=== PATIENT | male | born 1950 | race Caucasian/White ===

== ENCOUNTER → 2019-02-02 09:03 | Outpatient (CLI) | payer OTHER, SELFPAY ==
--- NOTE | 2019-02-02 | DI.US.S_ITS ---
PROCEDURE: US CAROTID DOPPLER BI INDICATIONS: VISUAL CHANGES TECHNIQUE: Color and pulse Doppler interrogation was performed of both carotid systems, with image documentation and velocity measurements. COMPARISON: None. FINDINGS: Stenosis calculations are based on SRU (Society of Radiologists in Ultrasound) criteria. Right side: Brachial blood pressure: 152/89 mm Hg. Common carotid artery peak systolic velocity: 101 cm/sec. Internal carotid artery peak systolic velocity: 126 cm/sec. Internal carotid artery end diastolic velocity: 25 cm/sec. External carotid artery peak systolic velocity: 111 cm/sec. ICA/CCA peak systolic ratio: 1.3 Quevedo scale imaging description: Mild atherosclerotic changes are seen. Percent internal carotid artery stenosis: 50-69% by velocity criteria. Vertebral artery: Flow direction is antegrade. Left side: Brachial blood pressure: 141/84 mm Hg. Common carotid artery peak systolic velocity: 116 cm/sec. Internal carotid artery peak systolic velocity: 80 cm/sec. Internal carotid artery end diastolic velocity: 17 cm/sec. External carotid artery peak systolic velocity: 116 cm/sec. ICA/CCA peak systolic ratio: 0.7 Quevedo scale imaging description: Mild atherosclerotic changes can be seen. Percent internal carotid artery stenosis: Less than 50% by velocity criteria. Vertebral artery: Flow direction is antegrade. IMPRESSION: By velocity criteria, there is a moderate stenosis (between 50 and 69% stenosis) within the right proximal internal carotid artery. The true degree of stenosis is felt most likely to be at the lower end of this range. Dictated by: Jeffrey Edge M.D. on 02/02/2019 at 12:14 Approved by: Jeffrey Edge M.D. on 02/02/2019 at 12:15
--- NOTE | 2019-02-02 | DI.US.S_ITS ---
PROCEDURE: US ABDOMEN LIMITED INDICATIONS: LEFT INGUINAL PAIN TECHNIQUE: Real-time focused scanning was performed of the inguinal region, with image documentation. COMPARISON: [facility], US, RENAL OR RETROPERITONEAL LIMIT, 05/26/2017, 9:32. FINDINGS: No left inguinal hernia or other left groin abnormality seen. IMPRESSION: No sonographic abnormality involving the left groin. Dictated by: Samuel BROWN Interpreted: Jayme Chacon MD on 02/02/2019 at 14:51 Approved by: Jayme Chacon M.D. on 02/02/2019 at 16:12
== END ==
PROVIDERS: PCP Student in an Organized Health Care Education/Training Program; Visit Provider Student in an Organized Health Care Education/Training Program
DX: I65.21 Occlusion and stenosis of right carotid artery (principal); H53.9 Unspecified visual disturbance; R10.32 Left lower quadrant pain
CPT/HCPCS: 76705; 93880

== ENCOUNTER → 2019-02-16 13:53 | Outpatient (CLI) | payer OTHER, SELFPAY ==
--- NOTE | 2019-02-16 | DI.CT.S_ITS ---
PROCEDURE: CT ABDOMEN PELVIS WO CON INDICATIONS: left groin pain TECHNIQUE: Noncontrast 5 mm thick sections acquired from the diaphragms to the symphysis. 5 mm thick coronal and sagittal reformats were then performed. For radiation dose reduction, the following was used: automated exposure control, adjustment of mA and/or kV according to patient size. COMPARISON: [facility], , ABDOMEN LIMITED, 02/02/2019, 9:28. FINDINGS: Image quality: Excellent. Lung bases: Lung bases are clear. Heart size is normal. Prominent pericardial fat pad. Urinary system: Both kidneys are normal in size. No kidney stones. No hydronephrosis or perinephric fat stranding. Both ureters appear non-dilated throughout their expected courses. Bladder wall thickness is normal; no calcified bladder stones. Other solid organs: Liver is normal in size. Gallbladder unremarkable. Pancreas is normal in contours. Spleen is normal in size. No adrenal nodules. Peritoneum and bowel: Unenhanced bowel loops demonstrate normal wall thickness and caliber. No free fluid or air. Colonic diverticulosis. Nodes and vessels: No retroperitoneal or mesenteric adenopathy by size criteria. Aorta and inferior vena cava are normal in caliber. Abdominal wall: Fat and fluid containing midline ventral hernia measuring 3 cm image 55 series 2. Small fat containing left inguinal hernia. This measures approximately 2.9 cm Trace right fat-containing inguinal hernia Bones: No suspicious bony lesions. No vertebral body compression fractures. IMPRESSION: 2.9 cm fat containing left inguinal hernia. Trace right fat-containing inguinal hernia. No evidence of urolithiasis. No evidence of urinary obstruction. Fat/fluid containing midline ventral hernia (3 cm). Additional chronic and incidental findings as above. No Dictated by: Deo Rodriguez M.D. on 02/16/2019 at 16:09 Approved by: Deo Rodriguez M.D. on 02/16/2019 at 16:16
== END ==
PROVIDERS: PCP Student in an Organized Health Care Education/Training Program; Visit Provider Student in an Organized Health Care Education/Training Program
DX: K40.90 Unilateral inguinal hernia, without obstruction or gangrene, not specified as recurrent (principal)
CPT/HCPCS: 74176

== ENCOUNTER → 2019-09-09 16:14 | Outpatient (ROUT) | payer OTHER, SELFPAY ==
[2019-09-09 16:53] LABS: Influenza A - CEPHEID Flu A NEGATIVE (NEGATIVE); Influenza B - CEPHEID Flu B NEGATIVE (NEGATIVE)
== END ==
PROVIDERS: PCP Student in an Organized Health Care Education/Training Program; Visit Provider Student in an Organized Health Care Education/Training Program
DX: R05 Cough (principal)
CPT/HCPCS: 87502

== ENCOUNTER → 2019-09-23 14:58 | Outpatient (CLI) | payer OTHER, SELFPAY ==
--- NOTE | 2019-09-23 | DI.US.S_ITS ---
PROCEDURE: US CAROTID DOPPLER BI INDICATIONS: CAROTID ARTERY STENOSIS BILATERAL TECHNIQUE: Color and pulse Doppler interrogation was performed of both carotid systems, with image documentation and velocity measurements. COMPARISON: [facility], US, US CAROTID DOPPLER BI, 02/02/2019, 9:11. FINDINGS: Stenosis calculations are based on SRU (Society of Radiologists in Ultrasound) criteria. Right side: Brachial blood pressure: 121/72 mm Hg. Common carotid artery peak systolic velocity: 88 cm/sec. Internal carotid artery peak systolic velocity: 148 cm/sec. Internal carotid artery end diastolic velocity: 88 cm/sec. External carotid artery peak systolic velocity: 111 cm/sec. ICA/CCA peak systolic ratio: 1.7. Quevedo scale imaging description: Calcified plaque Percent internal carotid artery stenosis: 50-69% stenosis. Vertebral artery: Flow direction is antegrade. Left side: Brachial blood pressure: 127/81 mm Hg. Common carotid artery peak systolic velocity: 98 cm/sec. Internal carotid artery peak systolic velocity: 87 cm/sec. Internal carotid artery end diastolic velocity: 26 cm/sec. External carotid artery peak systolic velocity: 144 cm/sec. ICA/CCA peak systolic ratio: 0.9. Quevedo scale imaging description: Calcified plaque Percent internal carotid artery stenosis: Less than 50%. Vertebral artery: Flow direction is antegrade. IMPRESSION: 1. 50-69% stenosis of the origin of the right internal carotid artery not significantly changed compared 02/02/2019. 2. Less than 50% stenosis of the origin of the left internal carotid artery unchanged compared to 02/02/2019. Dictated by: Fabiola Verma MD, PhD on 09/23/2019 at 16:39 Approved by: Fabiola Verma MD, PhD on 09/23/2019 at 16:46
--- NOTE | 2019-09-23 | DI.ECHO.S_ITS ---
[place] [facility]---------+ [facility] +---------+ : : [address] [place] : : : : [id number] : : : : Phone: [phone]---------+ Echocardiogram Report + + :Name: JENS GUTIERREZ Study Date: 09/23/2019 Height: 67 in : :[facility] Weight: 286 lb : : Gender: Male BSA: 2.4 m2 : :: 1950 Age: 69 yrs BP: 127/81 mmHg: :Reason For Study: Pedal Edema, Hypertension : :Ordering Physician: Elaine : :Hospitalist Performed By: Niya Ham : :Referring: SHRUTI RAMIREZ : + + Interpretation Summary 1) Normal left ventricular size, thickness, wall motion, and systolic function (EF 60-65%). 2) Grossly, normal right ventricular size and function. 3) No significant valvular abnormalities. 4) No prior Echo available for comparison. Procedure: A two-dimensional transthoracic echocardiogram with color flow and Doppler was performed. The study quality was technically difficult. There is no prior echocardiogram noted for this patient. A contrast injection of Definity was performed to improve assessment of LV function. Contrast was injected into an intravenous site in the right arm. Definity contrast used after patient education and consent. Patient denied any symptoms following the use of Definity. The patient was in normal sinus rhythm during the exam. Left Ventricle: The left ventricle is normal in size and wall thickness. The ejection fraction is estimated to be 60-65%. Diastolic parameters suggest probable normal left ventricular diastolic function and normal filling pressures. Right Ventricle: The right ventricle is not well visualized. The right ventricle grossly appears normal in size with probable normal systolic function. Atria: Both atria are normal in size. There is no Doppler evidence for an interatrial shunt. Mitral Valve: The mitral valve is normal in structure and function. There is no mitral regurgitation noted. Aortic Valve: The aortic valve is trileaflet. The aortic valve opens well. There is no aortic valve stenosis. No aortic regurgitation is present. Tricuspid Valve: The tricuspid valve is normal in structure and function. There is mild tricuspid regurgitation. The right ventricular systolic pressure is estimated to be at least 18 mmHg based on an estimated right atrial pressure of 3 mm Hg. Pulmonic Valve: The pulmonic valve is not well visualized. There is no pulmonic valvular regurgitation. Great Vessels: The aortic root is normal size. The ascending aorta could not be visualized. The IVC is of normal diameter and collapses greater than 50% with a sniff. This suggests a low right atrial pressure of 3 mm Hg. Pericardium/ Pleura There is no pericardial effusion. There is no pleural effusion. MMode/2D Measurements & Calculations LVIDd: 5.0 cm LVOT diam: 2.1 cm LVIDs: 3.4 cm Ao root diam: 3.3 cm FS: 33.1 % asc Aorta Diam: 3.8 cm EPSS: 0.83 cm IVSd: 1.0 cm LVPWd: 1.0 cm LV lorenz. diameter/BSA (cm/m^2): 2.1 LV sys. diameter/BSA (cm/m^2): 1.4 LA A2 area: 19.8 cm2 RA long axis: 5.8 cm LA A4 area: 20.8 cm2 RA area: 17.3 cm2 LA length (vol): 5.9 cm RA vol: 44.1 ml LA vol: 59.2 ml RA : 18.8 ml/m2 LA vol index: 25.2 ml/m2 IVC diam: 2.0 cm TAPSE: 2.6 cm Doppler Measurements & Calculations Ao V2 max: 146.3 cm/sec LVOT Max Jeffy: 112.7 cm/sec Ao V2 mean: 103.1 cm/sec LV V1 max P.1 mmHg Ao max P.6 mmHg LV V1 VTI: 22.0 cm Ao mean P.8 mmHg ELENO(I,D): 2.8 cm2 Ao V2 VTI: 28.9 cm ELENO(V,D): 2.8 cm2 sev ratio: 0.76 ELENO indexed to BSA (cm^2/m^2): 1.2 MV E max jeffy: 58.5 cm/sec TR max jeffy: 195.9 cm/sec MV A max jeffy: 63.6 cm/sec TR max P.3 mmHg MV E/A: 0.92 PA V2 max: 90.9 cm/sec Med Peak E' Jeffy: 8.3 cm/sec PA V2 mean: 62.8 cm/sec E/E' med: 7.0 PA mean P.8 mmHg Lat Peak E' Jeffy: 8.5 cm/sec PA pr(Accel): 55.4 mmHg E/E' lat: 6.9 E/e' average: 7.0 MV dec time: 0.22 sec MV P1/2t: 65.7 msec MV P1/2t max jeffy: 59.2 cm/sec SV(LVOT): 79.7 ml MVA(P1/2t): 3.3 cm2 Reading Physician:05:43 PM
== END ==
PROVIDERS: PCP Student in an Organized Health Care Education/Training Program; Referring Provider Student in an Organized Health Care Education/Training Program; Visit Provider Student in an Organized Health Care Education/Training Program
DX: I65.23 Occlusion and stenosis of bilateral carotid arteries (principal); I07.1 Rheumatic tricuspid insufficiency; R60.0 Localized edema; I10 Essential (primary) hypertension
CPT/HCPCS: 93306; 93880

== ENCOUNTER → 2020-02-08 11:23 | Outpatient (ROUT) | payer OTHER, SELFPAY ==
[2020-02-08 12:01] LABS: Troponin I 0.021 ng/mL (0.01-0.034)
== END ==
PROVIDERS: PCP Student in an Organized Health Care Education/Training Program; Visit Provider Student in an Organized Health Care Education/Training Program
DX: R00.1 Bradycardia, unspecified (principal)
CPT/HCPCS: 84484

== ENCOUNTER → 2020-02-08 11:35 | Outpatient (CLI) | payer OTHER, SELFPAY ==
--- NOTE | 2020-02-08 | DI.RAD.S_ITS ---
PROCEDURE: XR CHEST 2V INDICATIONS: Bradycardia, unspecified TECHNIQUE: 2 views of the chest were acquired. COMPARISON: None. FINDINGS: Surgical changes and devices: None. Lungs and pleura: Diffuse, bilateral interstitial opacities are present. No focal lung consolidation.. No pleural effusions or pneumothorax. Mediastinum: Mediastinal contours are normal. Heart size is enlarged. Bones and chest wall: No suspicious bony abnormalities. Soft tissues appear unremarkable. IMPRESSION: Mild cardiomegaly and diffuse interstitial opacities of indeterminate acuity. Mild pulmonary edema or atypical infection cannot be excluded and clinical correlation and follow-up is recommended. Dictated by: Samuel Castañeda [facility] Interpreted: Meron Bonds MD on 02/08/2020 at 16:45 Approved by: Meron Bonds M.D. on 02/08/2020 at 18:04
== END ==
PROVIDERS: PCP Student in an Organized Health Care Education/Training Program; Referring Provider Student in an Organized Health Care Education/Training Program; Visit Provider Student in an Organized Health Care Education/Training Program
DX: R00.1 Bradycardia, unspecified (principal); R06.02 Shortness of breath; I51.7 Cardiomegaly
CPT/HCPCS: 71046; 84484

== ENCOUNTER → 2021-05-31 17:22 | Outpatient (CLI) | payer OTHER, SELFPAY ==
[2021-05-31 17:58] LABS: Add Manual Diff / Slide Review NO; Basophils Absolute Auto 0 /uL (0-100); Basophils Percent Auto 0.7 % (0-2); Eosinophils Absolute Auto 300 /uL (0-450); Eosinophils Percent Auto 5.8 % (2-4); Hematocrit 41.8 % (41-53); Hemoglobin 14.2 g/dL (13.5-17.5); Lymphocytes Absolute Auto 1300 /uL (1100-4500); Lymphocytes Percent Auto 25.4 % (25-40); Mean Corpuscular HGB Conc 33.9 % (30-36); Mean Corpuscular Hemoglobin 31.9 PG (26-34); Mean Corpuscular Volume 93.9 fL (80-100); Monocytes Absolute Auto 700 /uL (0-900); Neutrophils Absolute Auto 2900 /uL (1500-7000); Neutrophils Percent Auto 55.1 % (50-75); Platelet Count 265 X10^3/uL (150-400); Red Blood Cell Count 4.45 X10^6/uL (4.5-5.9); White Blood Cell Count 5.2 X10^3/uL (4.5-11.0)
[2021-05-31 18:33] LABS: Appearance Urine UA CLEAR; Bilirubin Urine UA NEGATIVE (NEGATIVE); Color Urine UA YELLOW; Glucose Urine UA NEGATIVE (Negative); Ketones Urine UA NEGATIVE (NEGATIVE); Leukocyte Esterase Urine UA TRACE (NEGATIVE); Nitrite Urine UA POSITIVE (Negative); Occult Blood Urine UA 1+ (Negative); Protein Urine UA NEGATIVE (Negative); Urobilinogen Urine UA 0.2 E.U./dL (0.2)
[2021-05-31 18:43] LABS: Alanine Aminotransferase 36 IU/L (<50); Albumin 4.3 g/dL (3.5-5.0); Albumin Globulin Ratio 1.2 (1.0-2.8); Alkaline Phosphatase 103 U/L (38-126); Aspartate Aminotransferase 36 IU/L (17-59); BUN Creatinine Ratio 19.8 (6-22); Bilirubin Total 0.5 mg/dL (0.2-1.3); Blood Urea Nitrogen 20 mg/dL (9-20); Calcium 9.8 mg/dL (8.4-10.2); Carbon Dioxide 30 mmol/L (22-32); Chloride 102 mmol/L (98-107); Estimated Glomerular Filt Rate > 60.0 mL/min (>60); Globulin 3.6 g/dL (1.7-4.1); Glucose 105 mg/dL (80-110); HEMOLYSIS < 15 (0-50); Potassium 4.5 mmol/L (3.4-5.1); Sodium 139 mmol/L (137-145); Total Protein 7.9 g/dL (6.3-8.2)
[2021-05-31 19:08] LABS: Bacteria Urine None Seen; Culture Indicated Urine Specimen Cultured; RBC Urine None Seen (0-5/HPF); Squamous Epithelial Cell Urine 0-1 /HPF (0-5/HPF); WBC Urine 1-5/HPF (0-5/HPF)
[2021-05-31 19:09] LABS: Thyroid Stimulating Hormone 1.96 uIU/mL (0.47-4.68)
== END ==
PROVIDERS: PCP Student in an Organized Health Care Education/Training Program; Referring Provider Student in an Organized Health Care Education/Training Program; Visit Provider Student in an Organized Health Care Education/Training Program
DX: R61 Generalized hyperhidrosis (principal)
CPT/HCPCS: 36415; 80053; 81001; 84443; 85025; 87086

== ENCOUNTER → 2021-06-11 12:20 | Outpatient (CLI) | payer OTHER, SELFPAY ==
--- NOTE | 2021-06-11 | DI.ECHO.S_ITS ---
[place] +---------+ Hospital +---------+ : : [address] : [address] [place] : : : : [id number] : : : : Phone: [phone] : : [phone] +---------+ Echocardiogram Report + + :Name: JENS GUTIERREZ Study Date: 06/11/2021 Height: 67.5 in: :[facility] ReadingLocation: Weight: 280 lb : : Gender: Male BSA: 2.4 m2 : :: 1950 Age: 70 yrs : :Reason For Study: Edema : :Ordering Physician: MARTAerformed By: Travis Fernandez : :Referring: STEPHANIE DILLARD : + + Interpretation Summary The study quality was technically difficult. The ejection fraction is estimated to be 55-60%. There are no obvious focal wall motion abnormalities noted but poor endocardial definition reduces the sensitivity for the detection of such. There is no significant valvular heart disease. Procedure: A two-dimensional transthoracic echocardiogram with color flow and Doppler was performed. The study quality was technically difficult. The apical views were difficult to obtain and are suboptimal in quality. Comparison is made with the echocardiogram of 09/23/2019. A contrast injection of Definity was performed to improve assessment of LV function. The patient was in normal sinus rhythm during the exam. Left Ventricle: The left ventricle is normal in size and wall thickness. The ejection fraction is estimated to be 55-60%. There are no obvious focal wall motion abnormalities noted but poor endocardial definition reduces the sensitivity for the detection of such. Right Ventricle: The right ventricle is not well visualized. Atria: The left atrium is not well visualized. The left atrium is mildly dilated. Right atrium not well visualized. The right atrium is moderately dilated. There is no Doppler evidence for an interatrial shunt. The atrial septum is aneurysmal. Mitral Valve: The mitral valve is normal. There is trace mitral regurgitation. Aortic Valve: The aortic valve is trileaflet. The aortic valve opens well. No aortic regurgitation is present. Tricuspid Valve: The tricuspid valve is normal. There is trace tricuspid regurgitation. Pulmonary artery pressures cannot be estimated because of the lack of a measurable TR jet velocity. Pulmonic Valve: The pulmonic valve is not well seen, but is grossly normal. There is a trace or physiologic amount of pulmonic regurgitation. Great Vessels: The aortic root is normal size. The ascending aorta is mildly enlarged. The aortic arch could not be visualized. The IVC is of normal diameter and collapses greater than 50% with a sniff. This suggests a low right atrial pressure of 3 mm Hg. Pericardium/ Pleura There is no pericardial effusion. There is an anterior echo-free space consistent with a fat pad. There is no pleural effusion. MMode/2D Measurements & Calculations LVIDd: 5.2 cm LVOT diam: 1.9 cm LVIDs: 4.1 cm Ao root diam: 2.8 cm FS: 21.2 % asc Aorta Diam: 3.9 cm IVSd: 1.0 cm LVPWd: 1.0 cm LV lorenz. diameter/BSA (cm/m^2): 2.2 LV sys. diameter/BSA (cm/m^2): 1.7 LA A2 area: 29.3 cm2 RA long axis: 5.5 cm LA A4 area: 25.4 cm2 RA area: 25.3 cm2 LA length (vol): 6.4 cm RA vol: 97.9 ml LA vol: 98.6 ml RA : 41.7 ml/m2 LA vol index: 41.9 ml/m2 LVLs ap4: 7.6 cm LVLd ap2: 9.1 cm LVLs ap2: 7.7 cm Doppler Measurements & Calculations Ao V2 max: 169.7 cm/sec LVOT Max Jeffy: 118.7 cm/sec Ao V2 mean: 119.6 cm/sec LV V1 max P.6 mmHg Ao max P.5 mmHg LV V1 VTI: 24.8 cm Ao mean P.2 mmHg ELENO(I,D): 1.9 cm2 Ao V2 VTI: 37.5 cm ELENO(V,D): 2.0 cm2 sev ratio: 0.66 ELENO indexed to BSA (cm^2/m^2): 0.80 MV E max jeffy: 62.1 cm/sec PA V2 max: 79.6 cm/sec MV A max jeffy: 50.1 cm/sec PA V2 mean: 55.5 cm/sec MV E/A: 1.2 PA mean P.0 mmHg Med Peak E' Jeffy: 9.3 cm/sec PA pr(Accel): 21.9 mmHg E/E' med: 6.7 Lat Peak E' Jeffy: 8.6 cm/sec E/E' lat: 7.2 E/e' average: 7.0 MV dec time: 0.24 sec [facility] 70.4 ml Reading Physician:04:57 PM
== END ==
PROVIDERS: PCP Student in an Organized Health Care Education/Training Program; Referring Provider Internal Medicine Cardiovascular Disease; Visit Provider Internal Medicine Cardiovascular Disease
DX: I77.89 Other specified disorders of arteries and arterioles (principal); R60.9 Edema, unspecified
CPT/HCPCS: 93306; Q9957

== ENCOUNTER 2022-03-31 19:01 | Emergency (ER) | payer OTHER, SELFPAY ==
[2022-03-31] VITALS (7 sets, daily range): BP systolic 119–146; BP diastolic 61–90; PULSE 54–79; RESP 20–26; TEMP 36.3; O2SAT 94–98; BMI 43.5
[2022-03-31] MEDS: MORPHINE 4 MG/ML INJ IV ×2 (19:21→19:34)
--- NOTE | 2022-03-31 19:26 | ED_ITS ---
HPI - Extremity Injury (Lower) General Chief Complaint: Extremity Injury, Lower Stated Complaint: log/3 feet long fell on right leg at home Time Seen by Provider: 03/31/22 19:16 Source: patient Mode of arrival: Wheelchair Limitations: no limitations History of Present Illness HPI Narrative: 71-year-old male who is here for evaluation of a right foot injury. He states that he was wearing a pair of boots. He was working with some wood. Pulling somewhat of a back of a vehicle when a very large log which he estimates to be approximately 400 lb fell down and crushed his right foot. No other injuries from the event. No other pain except for his right foot. Has been unable to walk because of the discomfort. Related Data Home Medications Medication Instructions Recorded Confirmed atorvastatin 10 mg tablet 10 mg PO DAILY 02/24/19 02/24/19 cetirizine 10 mg tablet (Aller-Jennifer) 5 mg PO DAILY PRN 02/24/19 02/24/19 cyclobenzaprine 10 mg tablet 10 mg PO BEDTIME 02/24/19 02/24/19 dexamethasone 4 mg tablet 4 mg PO DAILY 02/24/19 02/24/19 doxazosin 4 mg tablet 4 mg PO DAILY 02/24/19 02/24/19 hydrochlorothiazide 12.5 mg capsule 12.5 mg PO DAILY 02/24/19 02/24/19 hydrocodone 5 mg-acetaminophen 325 1 tab PO QID PRN 02/24/19 02/24/19 mg tablet losartan 50 mg tablet 50 mg PO DAILY 02/24/19 02/24/19 paroxetine HCl 40 mg tablet 40 mg PO DAILY 02/24/19 02/24/19 trospium 20 mg tablet 20 mg PO BID 02/24/19 02/24/19 Previous Rx's Medication Instructions Recorded naproxen 500 mg tablet (Naprosyn) 500 mg PO BID groin pain #40 tabs 02/24/19 hydrocodone 5 mg-acetaminophen 325 1 tab PO Q4-6H PRN pain #20 tabs 03/31/22 mg tablet Allergies Allergy/AdvReac Type Severity Reaction Status Date / Time Penicillins [PENICILLINS] Allergy Unknown POSSIBLE Unverified 02/24/19 09:09 OVERDOSE GIVEN PER PT Review of Systems Constitutional Constitutional: Reports system reviewed and no additional complaints, except as documented Musculoskeletal Musculoskeletal: Reports system reviewed and no additional complaints, except as documented Integumentary/Breasts Skin/Breast: Reports system reviewed and no additional complaints, except as documented Neurologic Neurologic: Reports system reviewed and no additional complaints, except as documented Patient History Medical History Hypertension Left groin pain Surgical History History of ankle surgery Hx of total knee arthroplasty Family History Father Hypertension Cancer Diabetes mellitus Social History marital status: household members: spouse Smoking Status: Never smoker alcohol intake: current substance use type: does not use Smoking Status: Never smoker Substance Use Type: does not use Exam Initial Vital Signs Initial Vital Signs: Vital Signs Temperature 97.3 F L 03/31/22 19:18 Pulse Rate 54 L 03/31/22 19:18 Respiratory Rate 22 03/31/22 19:18 Blood Pressure 146/90 H 03/31/22 19:18 Pulse Oximetry 96 03/31/22 19:18 Oxygen Delivery Method 03/31/22 19:18 Const General: No acute distress HENMT Head: normal to inspection and normocephalic Resp Effort & Inspection: tachypneic Cardio Rate: regular rate Skin Other: No breaks in the skin of the right foot. Neuro Sensory Exam: no sensory deficits noted Extrem Other: Patient has no knee tenderness nor distal right concepcion nor ankle tenderness. He is significant swelling over the right foot. Tenderness throughout palpation of the right foot. Capillary refill less than 2 seconds right foot. Psych Appearance: grossly normal Procedures Orthopedic Joint Reduction Joint #1: Time Out Performed: Yes Side: right Joint Reduction Location: other (Metatarsophalangeal of great toe) Analgesia: other (IV opioid) Technique used: direct manipulation Post-reduction neuro exam: no change Post-reduction vascular: no change Post Reduction X-Ray Obtained: Yes Post Reduction X-Ray Results: reduced Splint Applied: Yes Orthopedic Splinting/Casting Injury #1: Side: right Lower Extremity Injury Location: foot Lower Extremity Immobilizer: posterior splint Other Orthopedic Equipment: crutches Post splinting neuro exam: no change Post splinting vascular exam: no change Placed by: Provider Course Orders Ordered: ED Orders 03/31/22 19:27 XR foot RT min 3V Stat 03/31/22 20:37 XR foot RT 2V Stat 03/31/22 20:52 CT LE RT wo con Stat Discontinued Medications Hydrocodone Bitart/Acetaminophen (Hydrocodone/Acet 5/325 Prepack) 1 bottle MISC SEEINSTR ONE Stop: 03/31/22 20:56 Last Admin: 03/31/22 21:45 Dose: 1 bottle Documented By: JERZY Hydromorphone HCl (Hydromorphone 1 Mg Inj) 1 mg IV NOW ONE Stop: 03/31/22 20:20 Last Admin: 03/31/22 20:28 Dose: 1 mg Documented By: JERZY Morphine Sulfate (Morphine 4 Mg/Ml Inj) 4 mg IV NOW ONE Stop: 03/31/22 19:17 Last Admin: 03/31/22 19:21 Dose: 4 mg Documented By: JERZY Morphine Sulfate (Morphine 4 Mg/Ml Inj) 4 mg IV NOW ONE Stop: 03/31/22 19:28 Last Admin: 03/31/22 19:34 Dose: 4 mg Documented By: JERZY Vital Signs Vital signs: Vital Signs - 8 hr 03/31/22 19:18 03/31/22 19:26 03/31/22 20:31 Temperature 97.3 F L Pulse Rate 54 L 79 72 Respiratory Rate 22 21 20 Blood Pressure 146/90 H 143/77 H Pulse Oximetry 96 97 94 Oxygen Delivery Method Room Air Room Air 03/31/22 19:30 03/31/22 20:00 03/31/22 20:30 Temperature Pulse Rate 75 73 70 Respiratory Rate 26 H 26 H 21 Blood Pressure Pulse Oximetry 98 97 96 Oxygen Delivery Method 03/31/22 20:31 03/31/22 20:31 03/31/22 21:43 Temperature Pulse Rate 72 Respiratory Rate 21 Blood Pressure 143/77 H 119/61 Pulse Oximetry 95 Oxygen Delivery Method 03/31/22 21:43 Temperature Pulse Rate 72 Respiratory Rate Blood Pressure Pulse Oximetry 96 Oxygen Delivery Method MDM - Extremity Injury (Lower) Imaging Data Extremity x-ray #1: Radiologist's Impression: [address] [address] XRay Report Signed Patient: Devonte Obrien MR#: [id number] : 1950 Acct:[id number] Age/Sex: 71 / M Date of Service: 03/31/22 Loc: ED Accession Number: [id number] ?? Procedure: XR foot RT 2V Ordering Provider: Javi Amezquita D.O. PROCEDURE:? XR FOOT RT 2V ? INDICATIONS:? post reduction ? TECHNIQUE:? 2 views of the foot were acquired.? ? COMPARISON:? [facility], CR, XR FOOT RT MIN 3V, 03/31/2022, 19:38. ? FINDINGS:? ? Bones:? There is interval reduction of the previously dislocated 1st tarsometatarsal joint.? Comminuted fractures are redemonstrated involving the bases of the 1st through 5th metatarsals as well as the cuboid and likely the lateral cuneiform.? Mildly displaced fracture of the 2nd metatarsal neck is also redemonstrated. ? Soft tissues:? There is diffuse soft tissue swelling in the forefoot redemonstrated. ? ? IMPRESSION:? ? 1. Interval reduction of the 1st tarsometatarsal joint. ? 2. Multiple midfoot and forefoot fractures redemonstrated. ? ? Dictated by: Kirby Berg M.D. on 03/31/2022 at 21:49 ? ? Approved by: Kirby Berg M.D. on 03/31/2022 at 21:57 Extremity x-ray #2: Radiologist's Impression: [place] [address] XRay Report Signed Patient: Devonte Obrien MR#: [id number] : 1950 Acct:[id number] Age/Sex: 71 / M Date of Service: 03/31/22 Loc: ED Accession Number: [id number] ?? Procedure: XR foot RT min 3V Ordering Provider: Javi Amezquita D.O. PROCEDURE:? XR FOOT RT MIN 3V ? INDICATIONS:? crush injury to foot ? TECHNIQUE:? 3 views of the foot were acquired.? ? COMPARISON:? None. ? FINDINGS:? ? Bones:? There is lateral dislocation of the 1st tarsometatarsal joint with associated small fracture fragments.? There also mildly displaced fractures through the proximal shaft of the 2nd through 5th metatarsals with associated medial angulation.? A mildly displaced fracture of the neck of the 2nd metatarsal is also demonstrated with mild lateral angulation.? There is also a suspected comminuted fracture of the cuboid. ? Soft tissues:? There is extensive dorsal soft tissue swelling in the forefoot. ? ? IMPRESSION:? ? 1. Extensive fractures of the midfoot as described as well as lateral dislocation at the 1st tarsometatarsal joint.? Further evaluation may be obtained with CT if clinically indicated.? ? ? Dictated by: Kirby Berg M.D. on 03/31/2022 at 20:18 ? ? Approved by: Kirby Berg M.D. on 03/31/2022 at 20:20? CT LE: Radiologist's Impression: [address] [address] [address] Scan Report Signed Patient: Devonte Obrien MR#: [id number] : 1950 Acct:[id number] Age/Sex: 71 / M Date of Service: 03/31/22 Loc: ED Accession Number: [id number] ?? Procedure: CT LE RT wo con Ordering Provider: Javi Amezquita D.O. PROCEDURE:? CT LE RT WO CON ? INDICATIONS:? R foot crush injury ? TECHNIQUE:? Noncontrast 1-1.5 mm axial sections acquired from above the tibiotalar joint to the bottom of the calcaneus, with coronal and sagittal reformats.? ? COMPARISON:? [facility], CR, XR FOOT RT MIN 3V, 03/31/2022, 19:38.? [facility], CR, XR FOOT RT 2V, 03/31/2022, 20:29. ? FINDINGS:? Image quality:? Excellent.? ? Bones:? There are comminuted fractures throughout the right foot.? These include comminuted fractures of the calcaneus extending to the calcaneocuboid articula tion as well as through the anterior process.? A mildly displaced fracture of the inferior talus also present.? Comminuted fractures are demonstrated within the cuboid as well as small mildly displaced fractures of the lateral and middle cuneiforms.? There are comminuted fractures involving the bases of the 1st through 4th metatarsals.? There is fusion of the 5th tarsometatarsal joint.? A mildly displaced fracture of the 2nd metatarsal neck is also redemonstrated. ? Soft tissues:? There is extensive dorsal soft tissue swelling within the foot.? The flexor, extensor, peroneal, and Achilles tendons appear intact. ? IMPRESSION:? ? 1. Extensive fractures of throughout the foot as described including fractures of the calcaneus and talus in the hindfoot, fractures throughout the midfoot involving the cuboid, lateral and middle cuneiforms, and bases of the metatarsals, and fracture of the 2nd metatarsal neck in the forefoot. ? ? Dictated by: Kirby Berg M.D. on 03/31/2022 at 23:15 ? ? Approved by: Kirby Berg M.D. on 03/31/2022 at 23:22?? MDM Narrative Medical decision making narrative: Patient with extensive fractures and dislocation his right foot and tarsometatarsal area. He has brisk capillary refill. Dorsalis pedis pulses difficult to feel however his foot is warm and pink. Initial x-ray shows di slocation of the 1st MTP joint. This was reduced however the rest of his metatarsal joints improved alignment but not 100% reduced. He stated that after the 1st metatarsal was reduced his pain was significantly better. I did discuss the case with Dr. lee with orthopedic surgery who recommended a well-padded posterior splint which was placed. Patient tolerated this well. Nonweightbearing. Follow-up in the orthopedic office later this week. CT scan was ordered per her request for further evaluation of his foot injuries. Did consider compartment syndrome however despite the swelling that he has he did not have pain out of proportion. He has good perfusion to his toes. His foot is warm. Did inform the patient that if his pain worsened that he does need to return to the emergency department for further evaluation. He expressed understanding and agreement with plan. Discharge Plan Departure Patient Disposition: Home Clinical Impression: Foot fracture, right Instructions: How to Use Crutches, DI for Foot Fracture, How to Take Care of Your Splint Activity Restrictions/Additional Instructions: Continue to take all of your medications as directed. Use the pain medication as needed. The splint that was placed today needs to be treated like a cast. You need to keep it on and keep it clean and keep it dry. Do not walk when your right leg. Use the crutches. Tomorrow contact your primary doctor and also the orthopedic provider at the number provided below for a follow-up. Return to the emergency department for any new or worsening symptoms. Keep your foot elevated. Prescriptions: New hydrocodone-acetaminophen 5-325 mg tablet 1 tab PO Q4-6H PRN (Reason: pain) Qty: 20 0RF No Action trospium 20 mg tablet 20 mg PO BID hydrochlorothiazide 12.5 mg capsule 12.5 mg PO DAILY losartan 50 mg tablet 50 mg PO DAILY atorvastatin 10 mg tablet 10 mg PO DAILY doxazosin 4 mg tablet 4 mg PO DAILY paroxetine HCl 40 mg tablet 40 mg PO DAILY hydrocodone-acetaminophen 5-325 mg tablet 1 tab PO QID PRN dexamethasone 4 mg tablet 4 mg PO DAILY cyclobenzaprine 10 mg tablet 10 mg PO BEDTIME cetirizine [Aller-Jennifer] 10 mg tablet 5 mg PO DAILY PRN naproxen [Naprosyn] 500 mg tablet 500 mg PO BID Qty: 40 0RF Referrals: Dalia Robb MD [Physician] - Marisela Burch MD [Primary Care Provider] - Vick Virk MD [Physician] - Visit Report Forms: Patient Portal/API
--- NOTE | 2022-03-31 19:27 | DI.RAD.S_ITS ---
PROCEDURE: XR FOOT RT MIN 3V INDICATIONS: crush injury to foot TECHNIQUE: 3 views of the foot were acquired. COMPARISON: None. FINDINGS: Bones: There is lateral dislocation of the 1st tarsometatarsal joint with associated small fracture fragments. There also mildly displaced fractures through the proximal shaft of the 2nd through 5th metatarsals with associated medial angulation. A mildly displaced fracture of the neck of the 2nd metatarsal is also demonstrated with mild lateral angulation. There is also a suspected comminuted fracture of the cuboid. Soft tissues: There is extensive dorsal soft tissue swelling in the forefoot. IMPRESSION: 1. Extensive fractures of the midfoot as described as well as lateral dislocation at the 1st tarsometatarsal joint. Further evaluation may be obtained with CT if clinically indicated. Dictated by: Kirby Berg M.D. on 03/31/2022 at 20:18 Approved by: Kirby Berg M.D. on 03/31/2022 at 20:20
[2022-03-31] MEDS: HYDROMORPHONE 1 MG INJ IV (20:28)
--- NOTE | 2022-03-31 20:37 | DI.RAD.S_ITS ---
PROCEDURE: XR FOOT RT 2V INDICATIONS: post reduction TECHNIQUE: 2 views of the foot were acquired. COMPARISON: [facility], CR, XR FOOT RT MIN 3V, 03/31/2022, 19:38. FINDINGS: Bones: There is interval reduction of the previously dislocated 1st tarsometatarsal joint. Comminuted fractures are redemonstrated involving the bases of the 1st through 5th metatarsals as well as the cuboid and likely the lateral cuneiform. Mildly displaced fracture of the 2nd metatarsal neck is also redemonstrated. Soft tissues: There is diffuse soft tissue swelling in the forefoot redemonstrated. IMPRESSION: 1. Interval reduction of the 1st tarsometatarsal joint. 2. Multiple midfoot and forefoot fractures redemonstrated. Dictated by: Kirby Berg M.D. on 03/31/2022 at 21:49 Approved by: Kirby Berg M.D. on 03/31/2022 at 21:57
--- NOTE | 2022-03-31 20:52 | DI.CT.S_ITS ---
PROCEDURE: CT LE RT WO CON INDICATIONS: R foot crush injury TECHNIQUE: Noncontrast 1-1.5 mm axial sections acquired from above the tibiotalar joint to the bottom of the calcaneus, with coronal and sagittal reformats. COMPARISON: [facility], CR, XR FOOT RT MIN 3V, 03/31/2022, 19:38. [facility], CR, XR FOOT RT 2V, 03/31/2022, 20:29. FINDINGS: Image quality: Excellent. Bones: There are comminuted fractures throughout the right foot. These include comminuted fractures of the calcaneus extending to the calcaneocuboid articulation as well as through the anterior process. A mildly displaced fracture of the inferior talus also present. Comminuted fractures are demonstrated within the cuboid as well as small mildly displaced fractures of the lateral and middle cuneiforms. There are comminuted fractures involving the bases of the 1st through 4th metatarsals. There is fusion of the 5th tarsometatarsal joint. A mildly displaced fracture of the 2nd metatarsal neck is also redemonstrated. Soft tissues: There is extensive dorsal soft tissue swelling within the foot. The flexor, extensor, peroneal, and Achilles tendons appear intact. IMPRESSION: 1. Extensive fractures of throughout the foot as described including fractures of the calcaneus and talus in the hindfoot, fractures throughout the midfoot involving the cuboid, lateral and middle cuneiforms, and bases of the metatarsals, and fracture of the 2nd metatarsal neck in the forefoot. Dictated by: Kirby Berg M.D. on 03/31/2022 at 23:15 Approved by: Kirby Berg M.D. on 03/31/2022 at 23:22
[2022-03-31] MEDS: HYDROCODONE/ACET 5/325 PREPACK 1 BOTTLE MISC (21:45)
== END 2022-03-31 22:09 | disposition home or self-care (01) ==
PROVIDERS: Emergency Provider Emergency Medicine; PCP Student in an Organized Health Care Education/Training Program
DX: S92.311A Displaced fracture of first metatarsal bone, right foot, initial encounter for closed fracture (principal); S92.321A Displaced fracture of second metatarsal bone, right foot, initial encounter for closed fracture; S92.331A Displaced fracture of third metatarsal bone, right foot, initial encounter for closed fracture; S92.341A Displaced fracture of fourth metatarsal bone, right foot, initial encounter for closed fracture; W20.8XXA Other cause of strike by thrown, projected or falling object, initial encounter
CPT/HCPCS: 26742; 29515; 29540; 73620; 73630; 73700; 96374; 96375; 99284; J1170; J2270

== ENCOUNTER → 2022-04-25 10:36 | Outpatient (CLI) | payer OTHER, SELFPAY ==
--- NOTE | 2022-04-25 | DI.US.S_ITS ---
PROCEDURE: US PERIPH VENOUS LOW EXTREM RT INDICATIONS: EVALUATE FOR DVT TECHNIQUE: Real-time imaging, as well as color and pulse Doppler interrogation, were performed of the lower extremity deep veins from the inguinal ligament to the popliteal fossa. COMPARISON: None. FINDINGS: There is obstructing deep venous thrombosis seen within a distal right femoral vein. (The right femoral vein is duplicated distally and the larger branches thrombosed while the smaller branch appears patent.) The popliteal vein is also thrombosed. IMPRESSION: Distal right lower extremity deep venous thrombosis. Note: Concordant preliminary findings given by the game author upon the completion of the examination to Dr. Gill. Dictated by: Jeffrey Edge M.D. on 04/25/2022 at 11:39 Approved by: Jeffrey Edge M.D. on 04/25/2022 at 11:42
== END ==
PROVIDERS: PCP Family Medicine; Referring Provider Orthopaedic Surgery Foot and Ankle Surgery; Visit Provider Orthopaedic Surgery Foot and Ankle Surgery
DX: I82.411 Acute embolism and thrombosis of right femoral vein (principal); I82.431 Acute embolism and thrombosis of right popliteal vein; S97.81XD Crushing injury of right foot, subsequent encounter; X58.XXXD Exposure to other specified factors, subsequent encounter
CPT/HCPCS: 93971

== ENCOUNTER → 2022-05-15 11:25 | Outpatient (CLI) | payer OTHER, SELFPAY ==
[2022-05-15 12:05] LABS: COVID19 -Nasal RAPID Negative (Negative)
== END ==
PROVIDERS: PCP Family Medicine; Referring Provider Orthopaedic Surgery Foot and Ankle Surgery; Visit Provider Orthopaedic Surgery Foot and Ankle Surgery
DX: Z20.822 Contact with and (suspected) exposure to COVID-19 (principal)
CPT/HCPCS: 87635; C9803

== ENCOUNTER 2022-05-17 06:23 | Inpatient (IN) | payer OTHER, SELFPAY ==
[2022-05-02 10:02] VITALS: BMI 42.9
[2022-05-17] VITALS (10 sets, daily range): BP systolic 118–164; BP diastolic 55–96; PULSE 55–87; RESP 13–18; TEMP 36.3–37.7; O2SAT 92–98; BMI 42.9
--- NOTE | 2022-05-17 | DI.RAD.S_ITS ---
PROCEDURE: XR FOOT RT MIN 3V INDICATIONS: ORIF right foot TECHNIQUE: Six intraoperative fluoroscopic images obtained of the right foot. COMPARISON: [facility], [facility], XR FOOT RT 2V, 03/31/2022, 20:29. [facility], [facility], XR FOOT RT MIN 3V, 03/31/2022, 19:38. FINDINGS: Six intraoperative fluoroscopic images obtained of the right foot. IMPRESSION: Intraprocedural fluoroscopy was provided for guidance and anatomical localization. Please see the procedure report for further details. Dictated by: Joselito Castro M.D. on 05/17/2022 at 12:57 Approved by: Joseltio Castro M.D. on 05/17/2022 at 12:59
--- NOTE | 2022-05-17 07:25 | PM.PREOP ---
Pre-operative Note COVID-19 COVID-19 status: Negative Criteria for continued procedure: Possibility delay results in more complex future surgery or treatment Interval Note History & Physical reviewed/Exam performed by Physician: Yes Changes to H&P: No
[2022-05-17] MEDS: LACTATED RINGERS 1,000 ML 42 ML IV (07:30)
[2022-05-17] MEDS: CEFAZOLIN 2 GM/100 ML PREMIX 100 ML IV ×3 (08:00→23:44)
--- NOTE | 2022-05-17 08:38 | SUR.OPER ---
Supine on padded OR bed, head on pillows, arms secured on padded arm boards at <90 degrees abduction, legs uncrossed, safety belt at abdomen, tape over blanket over lower left leg.
[2022-05-17] MEDS: THROMBIN (RECOMBINANT) 5,000 UNIT VIAL 5000 UNIT TOP ×2 (10:11→11:00)
[2022-05-17] MEDS: BUPIVACAINE 0.25% (PF) 30 ML, EPINEPHrine 0.15 MG INJ (11:30)
[2022-05-17] MEDS: OXYCODONE IR 5 MG TABLET PO ×2 (12:29→13:07)
[2022-05-17] MEDS: HYDROMORPHONE 2 MG INJ IV ×2 (14:14→14:28)
--- NOTE | 2022-05-17 16:06 | PC.NURSE ---
Addendum entered by Ramiro Montgomery R.N. 05/17/22 19:09: Pt arrived at approx 1600 not 1350. Original Note: Day shift: Pt to room from PACU at approx 1350. He is A&Ox4. Rt foot is wrapped and toes exposed. He is able to wiggle those toes and good cap refill. VS WNL and RA 95%. Denies any nausea. Reports rt foot pain of 5/10 and is OK with that for now. Oriented to room and call light. He will be NWB on rt and he is aware of this. Agrees to not get OOB w/o help from staff. Urinal at bedside. WIll continue with post-op plan of care.
[2022-05-17] MEDS: OXYCODONE IR 10 MG TABLET PO (16:30)
--- NOTE | 2022-05-17 17:32 | P.OP_ITS ---
Operative Date/Time/Diagnoses Date of procedure: 05/17/22 Time of procedure: 08:20 Pre-op diagnosis: 1. Crushing injury of the right foot s97.81 2. Traumatic dislocation and fracture tarsometatarsal joint s93.326 3. Calcaneus fracture 4. Cuboid fracture right foot s92.211 5. BMI 42.9 e66.01 6. Acute deep venous thrombosis popliteal vein right lower extremity i82.431 Post-op diagnosis: same Procedure & Clinicians Same procedure as scheduled: Yes Indications: Patient is a 71-year-old male with a right foot crush injury Lisfranc fracture dislocation variant with cuboid crush injury and nondisplaced calcaneus fractures. Affecting his midfoot as well as a 2nd metatarsal neck fracture. He had an old 4th metatarsal neck fracture. Initial reduction in the emergency room and several weeks were spent waiting for resolution of soft tissues. During this time he was taking aspirin. He developed a deep venous thrombosis and was treated with Eliquis. His soft tissues are now resolved appropriate for intervention. He has been discussed with the vascular surgeons and internal medicine doctors regarding his medical complexities. He a he there is no indication for a filter. We discussed decision making surgical tiny and anticoagulation planning. Decision was made to proceed with the surgery. He was bridged from [facility] to [facility] and had greater than 3 weeks of therapeutic treatment prior to surgery. He understands that he has a severe traumatic injury and had pre-existing arthritis. Risk for persistent symptomatic posttraumatic arthritis and pain. Surgical planning would be midfoot fusions addressing the tarsometatarsal dislocations ORIF grafting versus external fixation to decompress the lateral column and cuboid crush injury. Non operative treatment of the calcaneus fractures. The risks and benefits of the procedure have been discussed with the patient and given the opportunity to ask questions. He understands he would be bridged back from [facility] to [facility] postoperatively. He has limited help at home and will require likely group home postoperatively as he will be nonambulatory. He will be nonweightbearing on the right lower extremity appro ximately [address] we place a spanning fixator this will remain in place 6-8 weeks. The risks of surgery include but are not limited to infection, malunion, nonunion, persistence of pain, damage to nerves and blood vessels, posttraumatic arthritis, DVT, PE, coardiopulmonary complications and . The patient expressed a thorough understanding of the risks and benefits of surgery and has elected to proceed. Consent was signed in the office today. During the operation, the services of a physician corporate legal assistant were medically indicated and necessary to provide the exposure of the operative site for the surgical procedure and to maintain the limb in a proper position to carry out the operation safely and efficiently. Without a qualified video production assistant being present this would extended the operative procedure and made the procedure technically more difficult to perform. Surgeon: Dalia Robb Concrete Panel Installer: Nelly Pierce Anesthesia Type: General and Local Operative Notes Findings: Comminuted intra-articular fracture at the base of the 1st tarsometatarsal joint. Comminuted intra-articular fracture at the base of the 2nd metatarsal extending into the tarsometatarsal joint. Minimally angulated 2nd metatarsal fracture. Healed old 4th metatarsal neck fracture highly comminuted cuboid crush injury with extensive scarring and impaction. Shortening of the lateral column Closure Type: primary Specimen(s): none sent Prosthetic devices, grafts, tissues, transplants, or devices: Arthrex 3.5 solid screws x2--1st TMT fusion Arthrex 2.4 mm T-plate with 2.4 locking screws proximally 2.4 locking and nonlocking screws distally Arthrex small external fixator for lateral column spanning device for cuboid crush injury. 3 mm pins x2 in the 5th metatarsal 3 mm pins x2 calcaneus, clamps and 200 mm carbon fiber bar c Estimated Blood Loss (mL): 100 Blood products transfused: none Tourniquet time (min): 130 Procedure in detail: Patient was seen in the preoperative area the site of surgery was marked informed consent confirmed. The patient was brought back to the operating room by the anesthesia team positioned supine on the operative table. General anesthetic was administered. An extensive 3 step prep of the foot was completed then the patient was positioned and ipsilateral thigh bump was placed. Well-padded thigh tourniquet was placed. Formal time-out procedure was performed confirming the patient's side and site of surgery administration of appropriate preoperative antibiotics. All were in agreement implants were in the room accounted for Attention was turned to the right lower extremity Esmarch was elevated to 250 mmHg and tourniquet raised. C-arm was brought in and incisions were planned. Due to the comminuted nature of the 2nd metatarsal base fracture and 2nd TMT inv olvement as well as comminuted 1st ray incision between the 1st and 2nd rays was a taken down centered over the TMT joints just lateral to the EHL. The neurovascular bundle was isolated medially and laterally and was retracted laterally to expose the 1st TMT. The comminuted intra-articular 1st metatarsal base fracture was exposed. The Synthes joint prep set was used to prepare the 1st TMT joint removing all remaining cartilage. The area was then cleaned bur and drilled and some bone graft with cancellous chips was placed. This was pinned in reduction. Second metatarsal base fracture with intra-articular involvement of the 2nd TMT joint was then exposed. This had lot of soft callus that took extensive debridement to expose and mobilize. This was brought back into reduction with the help of a large reduction clamp from the base of the 2nd metatarsal to the medial cuneiform and this was reduced and then fixed and place after the 1st 2nd TMT joint was prepped and bone graft placed. This was reduced and held in place with a 2.4 plate from the Arthrex set. This restored alignment of the 2nd metatarsal tarsal articulation. Next attention was returned to the 1st ray and sliding holes with the bur were made for screw trajectories and K-wires were drilled for crossing screws. These were then over drilled in a cannulated style and then a glide hole with a 3 5 solid drill was p laced and then solid 3.5 screws were placed in a lag by technique approach. Next the lateral incision centered over the cuboid and 4th metatarsal was made down through the skin subcutaneous tissues. Care was taken to protect the peroneus tertius. The base of the 4th metatarsal was exposed. With blunt dissection under the skin flap 3rd TMT was also able to be reached and grossly reduced . The cuboid fracture was highly comminuted and crushed. The 4th and 5th metatarsal bases were impacted. Due to the highly comminuted nature of the cuboid fracture there was not felt to be good structure for plate fixation and it was felt the patient would benefit from distraction treatment with the lateral column external fixator. The external fixture pins were then placed into the calcaneus and checked on lateral and axial imaging. There is advanced just past the medial cortex. Then distally the 2.0 planes were 1st placed into the 5th metatarsal however these pulled out and replaced with 3 mm pins that fixed well. The the were placed through the multi pin clamps and then the bar attachments placed and the 200 mm carbon fiber bar was used. This was secured proximally and then pulled distally provide distraction then tightened down. This did help expose the cuboid fracture some. Again it was highly comminuted. The fracture was exposed and backfilled with bone graft the using the cancellous chips. Alignment was checked on AP oblique and lateral x-rays. There was a improved alignment postoperatively 0 sup alignment of the 1st 2nd and 3rd TMT joints and distraction of the 4th and 5th cuboid articulation and the calcaneal cuboid articulation. At this point the tourniquet was released. Gelfoamand thrombin was used to help with hemostasis. The wounds were closed with 2-0 Syed ryl and 3-0 and 2-0 nylon suture with allogower donati stitches predominantly. Steri-Strips were also placed to help reduce tension. The patient was placed into a bulky style splint with careful padding around the lateral column external fixer which show was final tightened prior to dressing placement. Patient was placed into a posterior splint. He was woken from anesthesia and taken to recovery room in good condition there were no immediate complications with this procedure. All counts were correct. Complications: none Post-operative Condition: stable Disposition: PACU Plan for aftercare: Nonweightbearing right lower extremity. Elevation above the heart level or above as much as possible for the 1st 2-3 weeks after surgery. Keep splint clean dry and intact. Has external fixator on lateral aspect of the foot. This will stay clean dry and intact. Sutures remain in place 3-6 weeks. Follow up in clinic in 2 weeks as scheduled. Will be admitted to the floor. Recommend group home placement postoperatively for nonweightbearing status limited help at home. Will transition back to Lovenox starting tomorrow been to Eliquis the following day and continue on Eliquis for treatment of the DVT.
[2022-05-17] MEDS: HYDROMORPHONE 0.5 MG INJ IV ×4 (18:00→23:56)
--- NOTE | 2022-05-17 18:01 | PM.PNPO.1 ---
Subjective Subjective Date Patient Seen: 05/17/22 Time Patient Seen: 18:01 Interval history: Postop day 0 right foot open reduction internal fixation primary arthrodesis for right foot crush injury. Patient has a known right popliteal DVT He will resume treatment for this on postoperative day 1 in the morning with Lovenox therapeutic 100 mg b.i.d.--he will get this for 2 doses on 05/18/2022 the morning and evening dose. Then on 05/19/2022 he will stop the Lovenox and resume his normal Eliquis dose which will be 5 mg b.i.d. He will continue on Eliquis 5 mg b.i.d. as an outpatient for continued treatment of the DVT. Exam Vital Signs (past 8 hours): - 05/17/22 12:12 05/17/22 12:17 05/17/22 12:27 Temperature 99.8 F H Pulse Rate 87 84 84 Respiratory Rate 13 14 13 Blood Pressure 164/94 H 142/86 H 144/96 H Pulse Oximetry 93 93 93 Oxygen Delivery Method Room Air Room Air Room Air 05/17/22 12:37 05/17/22 12:23 05/17/22 16:50 Temperature 99.1 F Pulse Rate 84 82 75 Respiratory Rate 15 13 Blood Pressure 148/95 H 150/90 H 118/55 L Pulse Oximetry 93 92 96 Oxygen Delivery Method Room Air Room Air Oxygen Delivery Method Room Air FOR[facility]LY [facility], [facility]–1983 Medical History (Updated 05/02/22 @ 12:27 by Danette Chua RN) Anxiety Arrhythmia Arthritis CAD (coronary artery disease) Carotid artery occlusion Crushing injury of right foot (~03/2022) DVT (deep venous thrombosis) (04/26/22) Easy bruisability HLD (hyperlipidemia) Hypertension Left groin pain Surgical History (Updated 05/02/22 @ 12:27 by Danette Chua RN) History of ankle surgery History of photorefractive keratectomy (PRK) Hx of tonsillectomy Hx of total knee arthroplasty Hx of transurethral resection of prostate (01/12/20) Family History Father Hypertension Cancer Diabetes mellitus Social History marital status: household members: spouse Smoking Status: Never smoker alcohol intake: former substance use type: does not use Assessment & Plan Post-op Postoperative Procedures: Procedures Operation Date: 05/17/22 07:45 Actual Procedure Side Surgeon p Open treatment of foot crush injury multiple tarsometatarsal fx dislocations with ORIF & arthrodesis, ORIF internal fixation cuboid & spanning external fixation foot, closed treatment of calcaneus fx Right Dalia Robb MD Quality VTE Deep Vein Thrombosis/Pulmonary Embolism Present on Admission: No
[2022-05-17] MEDS: HYDROMORPHONE 4 MG TABLET PO ×2 (18:27→22:34)
[2022-05-17] MEDS: SODIUM CHLORIDE 0.9% FLUSH 10 ML IV (19:52)
[2022-05-17] MEDS: DOCUSATE 100 MG CAPSULE PO (21:23)
[2022-05-18 00:10] VITALS: BP 129/72; PULSE 59; RESP 16; TEMP 37.3; O2SAT 98
[2022-05-18] MEDS: HYDROMORPHONE 4 MG TABLET PO ×5 (02:18→21:22)
[2022-05-18] MEDS: HYDROMORPHONE 0.5 MG INJ IV ×4 (02:18→08:31)
[2022-05-18 04:00] VITALS: BP 121/55; PULSE 58; RESP 17; TEMP 37.5; O2SAT 94
[2022-05-18] MEDS: LOSARTAN 50 MG TABLET PO (08:29)
[2022-05-18] MEDS: METOPROLOL ER 25 MG TABLET PO (08:29)
[2022-05-18] MEDS: MONTELUKAST 10 MG TABLET PO (08:29)
[2022-05-18] MEDS: ATORVASTATIN 20 MG TABLET 40 MG PO (08:30)
[2022-05-18] MEDS: PARoxetine 20 MG TABLET 30 MG PO (08:30)
[2022-05-18] MEDS: DOCUSATE 100 MG CAPSULE PO ×2 (08:30→21:21)
[2022-05-18] MEDS: OXYCODONE IR 10 MG TABLET PO ×3 (08:31→16:31)
[2022-05-18] MEDS: FUROSEMIDE 40 MG TABLET PO (08:31)
[2022-05-18] MEDS: LORATADINE 10 MG TABLET 5 MG PO (08:47)
[2022-05-18] MEDS: ENOXAPARIN 100 MG/ML SYRINGE SUBCUT ×2 (08:47→21:21)
[2022-05-18] MEDS: polyethylene glycoL 3350 17 GM POWD.PACK PO (08:47)
[2022-05-18] MEDS: SODIUM CHLORIDE 0.9% FLUSH 10 ML IV ×2 (08:48→21:22)
[2022-05-18 09:00] VITALS: BP 114/57; PULSE 95
[2022-05-18 09:04] LABS: Hematocrit 34.4 % (41-53); Hemoglobin 11.6 g/dL (13.5-17.5); Mean Corpuscular HGB Conc 33.6 % (30-36); Mean Corpuscular Hemoglobin 30.6 PG (26-34); Mean Corpuscular Volume 90.9 fL (80-100); Platelet Count 213 X10^3/uL (150-400); Red Blood Cell Count 3.78 X10^6/uL (4.5-5.9); Red Cell Distribution Width 12.9 % (11.6-14.8); White Blood Cell Count 10.7 X10^3/uL (4.5-11.0)
[2022-05-18 10:12] VITALS: BP 114/57; PULSE 70; RESP 20; TEMP 37.3; O2SAT 95
--- NOTE | 2022-05-18 10:18 | PM.PNPO.1 ---
Subjective Subjective Date Patient Seen: 05/18/22 Time Patient Seen: 09:45 Interval history: Patient is complaining of moderate to severe right foot pain. He is not worked with physical therapy yet. He notes he has difficulty with strength in his left leg from a prior injury approximately 20 years ago. He is concerned because his is 80 years old and will be unable to help him much at home. Exam Vital Signs (past 8 hours): - 05/18/22 04:00 05/18/22 10:12 Temperature 99.5 F 99.1 F Pulse Rate 58 L 70 Respiratory Rate 17 20 Blood Pressure 121/55 L 114/57 L Pulse Oximetry 94 95 Oxygen Flow Rate 0 Oxygen Delivery Method Room Air Oxygen Flow Rate 0 Narrative Exam Narrative: Pleasant 71-year-old male, resting comfortably in bed, no acute distress. Right foot dressing and splint is clean, dry, intact. He is able to wiggle his toes. Bilateral calves are soft and nontender to palpation. Objective Labs Result Diagrams: 05/18/22 08:45 Labs: Laboratory Results - last 24 hr 05/18/22 08:45 WBC 10.7 RBC 3.78 L Hgb 11.6 L Hct 34.4 L MCV 90.9 MCH 30.6 MCHC 33.6 RDW 12.9 Plt Count 213 PFSH Medical History Anxiety Arrhythmia Arthritis CAD (coronary artery disease) Carotid artery occlusion Crushing injury of right foot (~03/2022) DVT (deep venous thrombosis) (04/26/22) Easy bruisability HLD (hyperlipidemia) Hypertension Left groin pain Surgical History History of ankle surgery History of photorefractive keratectomy (PRK) Hx of tonsillectomy Hx of total knee arthroplasty Hx of transurethral resection of prostate (01/12/20) Family History Father Hypertension Cancer Diabetes mellitus Social History marital status: household members: spouse Smoking Status: Never smoker alcohol intake: former substance use type: does not use Assessment & Plan Post-op Postoperative Procedures: Procedures Operation Date: 05/17/22 07:45 Actual Procedure Side Surgeon p Open treatment of foot crush injury multiple tarsometatarsal fx dislocations with ORIF & arthrodesis, ORIF internal fixation cuboid & spanning external fixation foot, closed treatment of calcaneus fx Right Dalia Robb MD Postoperative day: 1 Postoperative status: marginal pain control Postoperative status narrative: -Stable status post right mark open reduction internal fixation primary arthrodesis and external fixation for right foot crush injury. -marginal pain control -postoperative hemorrhagic anemia, asymptomatic -history of DVT Postoperative plan narrative: -mobilize with PT. Nonweightbearing to the right lower extremity x6 weeks. -elevate ?toes above the nose? as much as possible for the 1st 2-3 weeks after surgery. -continue with multimodal pain management -Patient has a known right popliteal DVT. He will resume treatment for this on postoperative day 1 in the morning with Lovenox therapeutic 100 mg b.i.d.--he will get this for 2 doses on 05/18/2022 the morning and evening dose. Then on 05/19/2022 he will stop the Lovenox and resume his normal Eliquis dose which will be 5 mg b.i.d. He will continue on Eliquis 5 mg b.i.d. as an outpatient for continued treatment of the DVT. -Keep splint clean dry and intact. Has external fixator on lateral aspect of the foot. This will stay clean dry and intact. Sutures remain in place 3-6 weeks. -Follow up in clinic in 2 weeks as scheduled. -disposition: SNF in 1-2 days, depending on authorization and clearance from physical therapy. Patient is nonweightbearing on his right lower extremity. He has persisting left leg weakness from a prior injury approximately 20 years ago. His is unable to help much at home. Quality VTE Deep Vein Thrombosis/Pulmonary Embolism Present on Admission: Yes
--- NOTE | 2022-05-18 11:08 | PT.IIE ---
Current Diagnoses Dislocation of tarsometatarsal joint of unspecified foot, initial encounter (05/17/22) Crushing injury of right foot, initial encounter (05/17/22) Surgery Performed Operation Date: 05/17/22 07:45 Actual Procedures p Open treatment of foot crush injury multiple tarsometatarsal fx dislocations with ORIF & arthrodesis, ORIF internal fixation cuboid & spanning external fixation foot, closed treatment of calcaneus fx(Right) - Dalia Robb MD Surgical History (Last Reviewed 05/18/22 @ 10:23 by Nelly Pierce PA-C) History of ankle surgery History of photorefractive keratectomy (PRK) Hx of tonsillectomy Hx of total knee arthroplasty Hx of transurethral resection of prostate (01/12/20) Medical History (Last Reviewed 05/18/22 @ 10:23 by Nelly Pierce PA-C) Anxiety Arrhythmia Arthritis CAD (coronary artery disease) Carotid artery occlusion Crushing injury of right foot (~03/2022) DVT (deep venous thrombosis) (04/26/22) Easy bruisability HLD (hyperlipidemia) Hypertension Left groin pain Physical Therapy Inpatient Evaluation/Re-Eval M1 PT/OT-IP Prior Functional Status Start: 05/18/22 12:10 Freq: NEEDED Status: Active Protocol: Document 05/18/22 11:08 DLM (Rec: 05/18/22 12:40 DLM [id number]) Medical Review Prior Functional Status Medical History Reviewed Yes Diet/Fluid Consistency Regular Communication WFL Mobility and Gait Independent without device, community distances, active Activities of Daily Living and IADL's Independent, drives, active in community Prior Functional Level (Other details) He was out cutting fire wood at the time of his accident. Pt has been using a wheelchair since his injury since he has not been able to hop on left LE to keep weight off of the right foot. He has been scooting as much as possible. He tried to use crutches but has not been able to keep weight off right foot. Social History Household Members spouse Living Arrangements House Number of Floors (Floors) Two Floors Number of Stairs To Enter/Railing? 2 flights to get up into his house Home Environment High Toilet,Walk in Shower,Tub /Shower Home Equipment Front Wheel Walker,Crutches, Manual Wheelchair,Bedside Commode,Grab Bars In Shower Additional Social History Comment 3 steps up to get to toilet in bathroom in the house, 3 steps between bedroom level and living room level in the house. He has a 1/2 wall next to the toilet for support. He sleeps in a recliner normally because he can not lie flat. He has been staying in a travel trailer in the yard since his accident 03/31/22. He gets in/out of the trailer by scooting on the floor. He got a lift that gets him up from the floor to the couch in the trailer. He has not been strong enough to get off the floor without the lift but he can not down to the floor. He was using the bedside commode with a urinal for toileting since he can not get into the bathroom in the trailer. His is 80 years old with back problems and is unable to lift him. M2 PT-IP Current Condition Start: 05/18/22 12:10 Freq: NEEDED Status: Active Protocol: Document 05/18/22 11:08 DLM (Rec: 05/18/22 12:40 [facility] [id number]) Physical Therapy Current Condition Current Condition Evaluation Date 05/18/22 Treatment Diagnosis right foot ORIF/external fixator, crush injury, impaired gait/mobility Onset Date 05/17/22 M3 PT-IP Subjective Start: 05/18/22 12:10 Freq: NEEDED Status: Active Protocol: Document 05/18/22 11:08 DLM (Rec: 05/18/22 12:40 [facility] [id number]) Subjective Physical Therapy Visit Type Visit Start Time 10:10 Visit Stop Time 11:08 Total Visit Minutes 58 Number of HAT LINER Visits 0 Physical Therapy Visit Comments Patient Comments He agrees that he needs SNF rehab at discharge, he reports his left LE is not strong enough to be his only support. Patient Goals He wants to get better so he can return home Therapy Pain Assessment Pain When Pain Assessed During Mobility Pain Present Pain Present Pain Reported Location Right Foot Intensity 7 Scale Used Numeric (0 - 10) Description Aching,With Movement Pain Behaviors Wincing Pain Management Techniques Elevation,Timing of Activity with Medications M4 PT-IP Mobility and Gait Start: 05/18/22 12:10 Freq: NEEDED Status: Active Protocol: Document 11/19/22 11:08 DL (Rec: 05/18/22 12:40 [facility] [id number]) PT-Bed Mobility Assessment Rolling Type of Rolling Bilateral Level of Assist Minimal Assistance Supine to Sit Supine to Sit Minimal Assistance,Head of Bed Elevated,Bedrails Sit to Supine Sit to Supine Minimal Assistance,Bedrails Scooting Scooting to Edge of Bed Minimal Assistance Scooting Up and Down in Bed Moderate Assistance PT-Transfer Assessment Sit to and From Stand Sit to and from Stand Moderate Assistance,Maximum Assistance,Use of Upper Extremities Equipment Transfer Assistive Device Gait Belt,Front Wheeled Walker Comments Mobility Comments Pt sat edge of bed and progressed to standing at bedside. He needs a lot of assistance for sit to stand with the FWW with a taller bed . Once in standing he could stand for about 20 sec with the FWW and min/mod assist, NWB right LE. He reports 6/10 pain with full weight on left ankle (hx of ORIF years past). Right foot/ankle pain is 3/10 at rest elevated in bed. He has increased pain when right foot in dependent position. Gait Assessment Comments Gait Comments unable to take steps and stay NWB on right foot Stair Climbing Assessment Comments Stair Climbing Comments unable PT-Balance Assessment Sitting Balance and Reactions Static Sitting Balance Ability Good Dynamic Sitting Balance Ability Good Standing Balance and Reactions Static Standing Balance Ability Poor Dynamic Standing Balance Ability Poor Device Used FWW M5 PT-IP Objective Assessments Start: 05/18/22 12:10 Freq: NEEDED Status: Active Protocol: Document 05/18/22 11:08 [facility] (Rec: 05/18/22 12:40 [facility] [id number]) Orientation Orientation/Cognition Level of Alertness Alert Orientation Name,Age,Birthday,Month,Date, Year,Day of Week,Place, Situation Language Function Ability No Deficits Noted Safety Awareness Understands Safety Issues Memory Description No Deficits Noted Comments good awareness of his current situation, able to give historical information Gross Range of Motion Upper Extremity ROM Assessment Within Functional Limits Impairments mild end range stiffness in shoulders and fingers Lower Extremity ROM Assessment Right Impaired Impairments right foot/ankle casted with no functional movement, external fixator on lateral right foot Strength Upper Extremity Strength Assessment Bilaterally Impaired Shoulder flexion 4+/5 Elbow 5/5 Wrist 5/5 Hand management tech 4-/5 with limitations due to arthritic fingers Lower Extremity Strength Assessment Bilaterally Impaired Hip flexion right 4-/5, left 4/5 Knee extension right 4-/5, left 4/5 Ankle DF right- no functional use, left 4+/5 Comments Strength Comments he describes chronic pain left ankle since his ORIF (s/p fracture) Coordination Assessment Gross Coordination Gross Coordination WNL Sensation Assessment Sensation Gross Sensation WNL Comments Sensation Comments He reports he can feel right toes, the rest of the foot and ankle are wrapped up to his knee and not tested. His left ankle is tender to pressure with mild pitting edema noted in his distal LE. Muscle Tone Muscle Tone WNL Yes M6 PT-IP Treatment Start: 05/18/22 12:10 Freq: NEEDED Status: Active Protocol: Document 05/18/22 11:08 DLM (Rec: 05/18/22 12:40 DLM [id number]) Physical Therapy Treatment Education Education Provided Weight Bearing Status,Safety Other Treatments Other Treatment Performed discussed his many concerns about his home environment M7 PT-IP Assessment and Plan Start: 05/18/22 12:10 Freq: NEEDED Status: Active Protocol: Document 05/18/22 11:08 DLM (Rec: 05/18/22 12:40 DLM [id number]) PT Summary Assessment and Plan Potential Rehabilitation Potential Good Status of Condition at Evaluation Evolving Summary Impairments Pain,ROM,Strength,Balance,Bed Mobility,Transfers,Gait, Activity Tolerance Assessment Summary Devonte is alert and resting in bed today. He reports he was not doing well at home before surgery due to weakness that prevented him from being able to ambulate NWB right LE. His initial crush injury to his right foot was 03/31/22. He underwent surgery 05/17/22. Today his mobility is very limited. He is able to stand for short periods of time with the FWW but can not progress to transfers nor gait NWB right LE. He will needs SNF rehab at discharge to assist him in his functional recovery . Strengthening of his left LE and UE's will assist him with improved mobility and he needs training in compensatory patterns such as scoot and squat transfers to keep the weight off his right foot during this critical stage of healing. He is very motivated to work with therapy and get back home. He has a supportive family but his elderly is not able to physically lift due to her own back problems. Goals Bed Mobility Goal Independent Transfer Goal Moderate Assistance,Slide Board Other Goals Static standing with fWW and CG assist, NWB right LE x 3 min. Days to Meet Goals 7 Frequency of Treatment Frequency Of Treatment Once a Day Treatment Plan Physical Therapy Treatment Plan Bed Mobility Training,Transfer Training,Therapeutic Exercise ,Balance Retraining,Post Op Education,Discharge Planning, Hot or Cold Pack,Neuromuscular Re-ed Other Recommendations and Next Treatment drop arm commode placed in Focus room for training, also trial wheelchair transfers Precautions Other Precautions right LE DVT after right foot injury, fall risk Weight Bearing Status Weight Bearing Status Non-Weight Bearing Allowed Weight Bearing Amount (enter % right foot/ankle or #) (%) Recommendations To Nursing Amount of Assist Needed Mechanical Lift Discharge Recommendations PT Discharge Recommendations SNF Rehab Transportation Needs at Discharge Wheelchair/Cabulance
[2022-05-18 12:00] VITALS: BP 98/53; PULSE 82; RESP 18; TEMP 37; O2SAT 95
--- NOTE | 2022-05-18 15:05 | CM.DANOTE ---
DCP: Case received, EMR reviewed and met with patient. Introduced self and role. Was able to obtain information regarding patient's baseline activity status at home prior to surgery. DCP assessment completed with information currently available. Patient is a 71 year old male who admitted yesterday morning to the care of the orthopedic team. PCP: Dr. Virk. Payer: confirmed: [facility]. Patient came to the hospital via private vehicle for a surgical procedure. Patient had open reduction internal fixation of right cuboid fracture with bone grafting. Patient has history of traumatic crush injury of right foot, when a heavy log had landed it in March. Was already discussed that patient most likely would need jail. Nelly Pierce, PAC, had come in to see if there was an accepting facility today, but let her know that this is new to care managment, and would need to find facility of acceptance once [place] auth is completed. KATHI Guillen, has faxed P.T. note to [place]. This DC Auto Travel Counselor met with patient, introduced self and role. He is alert and oriented, sitting up in bed. Confirmed that he resides in [place] with spouse, Halima. Confirmed that he and spouse, who is 8 years older, do not drive. Madison Tineo, is patient's daughter. Patient gave permission to call her regarding discharge planning. Her number is [phone]. Patient worked with P.T, skilled is recommended. Patient knows he needs rehab, first choice is [facility], as it's near, and his does not drive. Let him know that [facility] has had some COVID cases. He is ok with this. Brought in Medicare Choice List and encouraged him to make a couple more choices. He asked that this DC Auto Travel Counselor ask daughter, Madison, to see what he thinks. Called Madison Tineo, and let her know that [facility] may not be able to accept until Friday, and encouraged other choices. Daughter is ok with [facility], she can transport her mother to see patient. Left November a message at [employer] to review, and sent referrals over to [facility] and [facility]. [facility] has been faxed, will need to follow up with senior case manager. P: DCP to continue to follow. Plan is [email or web address] as first choice, [facility] as second, and [facility] as third, pending [facility]. Zuleyka Ivey, RN/Infection Control Nurse Discharge Planning/Care Management CM Discharge Assessment Start: 05/18/22 15:04 Freq: Status: Active Protocol: Document 05/18/22 15:04 (Rec: 05/18/22 15:05 [id number]) Discharge Planning Assessment Assigned Insurance Risk Surveyor Zuleyka Ivey RN/Infection Control Nurse Advance Directives? Yes Advance Directives on File No History Provided By Patient,Medical Record Prior Living Arrangements House Household Members spouse Type of transporation used prior to Relies on Others admit Independent with ADL's Yes Is patient alert and oriented? Yes Needs Assistance With Home Chores / Shopping Caregiver for Another No DME Already Rented / Owned FWW / Walker Patient/Family Preference Senior Living Facility Barriers to Discharge No Discharge Plan Senior Living Facility Referrals Initiated Senior Living Additional Comment [facility], [facility], and [facility] If patient plan is SNF: Has PASSR been Yes completed? Whiteboard Updated in Patient Room with Yes name and ext. # of Insurance Risk Surveyor Review Status In Process Next Review Type Continued Stay Review Pre-Anesthesia Assessment Start: 05/02/22 10:02 Freq: Status: Complete Protocol: Document 05/02/22 10:02 CAB (Rec: 05/02/22 11:10 CAB [id number]) Pre-Anesthesia Assessment Preferred Name Devonte Patient Information Reviewed Via Phone Assessment Assessment Completed With Patient Comment Pre-op labs not ordered, COVID screen-needs to schedule Primary Care Provider Vick Virk Seen Specialist in Last 12 Months Yes Specialist Seen Orthopedist Primary Language Mauritian Clinical Manager Home Care Required No Height 5 ft 7.5 in Weight 278 lb Body Mass Index (BMI) 42.9 Hearing Ability Normal Visual Assist Glasses Dentition Type Teeth, Natural Present Barriers to Learning None Hx Anesthesia Reactions No Hx Family Anesthesia Reaction No Hx Malignant Hyperthermia No Hx Blood Transfusions No Anesthesia Review Requested No alcohol intake former Smoking Status Never smoker Substance Use Type does not use Pain Present Pain Reported Musculoskeletal Symptoms Abnormal Gait,Difficulty Walking,Joint Pain History of Falling (Recent or History of No ) Patient is completely paralyzed or No completely immobile Prosthesis or Orthotic Device Front Wheel Walker Mental Status Oriented to own ability Is patient on oxygen? No Does patient have CASTRO/SOB No Hx Sleep Apnea No Currently Taking a Beta Ga Yes: Metoprolol Can You Climb a Flight of Stairs Without No SOB Hx Chest Pain No Hx SOB No Hx Syncope or Dizziness No Anti-Coagulant Therapy Yes: Eliquis started for DVT 04/20 & ASA 162mg BID-pt will check w/PCP to [place] Has a Food Manager Yes: VLast visit 01/29/22 Food Manager name Tico BARRON @ [facility] Cardiac Testing No Hx Pacemaker/ICD No Pacemaker Rep Required? No Comment Cardiac records scanned Diet Type At Home Other Dysphagia No: Dakotah's Diet Gastrointestinal Symptoms None Chronic UTI No Bladder Pattern Frequency Urinary Catheter Present No Hx Urinary Self Catheterization No Diabetes No Hx Drug Resistant Organism No Presence of External or Internal Medical Yes: Right knee, left ankle Devices hardware Have you had any close contact with No someone diagnosed with COVID-19? Received a COVID vaccine? Yes Received all doses? No Marital Status Lives With spouse Current Living Arrangements House Number of Floors (Floors) Two Floors Support System Spouse Does the Patient Have Assistance After Yes: has physical Surgery limitatons, pt plans to go to a SNF Patient Discharge Plan Description Senior Living Facility/Rehab Comment Pt advised possible 3 day length of stay per surgeon Feels Safe in Current Environment Yes Been Physically Hurt or Threatened By a No Person in Current Environment Do you have thoughts of harming yourself None or others? Are you currently considering suicide? No Do you have a plan to hurt yourself or No Plan others? Do You Have Any Spiritual Beliefs That No May Affect Your HC Choices? Do You Have Any Cultural Practices That No May Affect Your HC Choices? Comment Yazidi Who Can We Speak to About Patient's Care Family, friends Identifying Code for Release of Patient Declines to issue Information Health Care Proxy/Next of Kin Mariah () Health Care Proxy Emergency Contact Name Mariah ()Madison (daughter) Emergency Contact Phone Number Mariah: [phone] Madison: Advance Directives? Yes Advance Directives on File No Requested Patient Bring Advanced Yes Directives DOS Power of Customer Service Rep No PAC Instructions Durable medical equipment, Medications to take/avoid,No ETOH/petroleum product on skin DOS,NPO,Sensory aids,Sturdy shoes/comfortable clothes,Do not bring valuables and remove jewelry
[2022-05-18 18:28] VITALS: BP 109/63; PULSE 60; RESP 19; TEMP 36.9; O2SAT 93
[2022-05-18] MEDS: ACETAMINOPHEN 325 MG TABLET 650 MG PO (23:20)
[2022-05-18] MEDS: CYCLOBENZAPRINE 10 MG TABLET PO (23:20)
[2022-05-19] VITALS (8 sets, daily range): BP systolic 89–113; BP diastolic 45–59; PULSE 60–82; RESP 16–18; TEMP 36.2–37.3; O2SAT 95–98
[2022-05-19] MEDS: HYDROMORPHONE 4 MG TABLET PO ×6 (00:15→18:38)
[2022-05-19] MEDS: ACETAMINOPHEN 325 MG TABLET 650 MG PO ×4 (06:21→23:14)
[2022-05-19] MEDS: ATORVASTATIN 20 MG TABLET 40 MG PO (08:56)
[2022-05-19] MEDS: FUROSEMIDE 40 MG TABLET PO (08:56)
[2022-05-19] MEDS: MONTELUKAST 10 MG TABLET PO (08:57)
[2022-05-19] MEDS: LORATADINE 10 MG TABLET 5 MG PO (08:57)
[2022-05-19] MEDS: METOPROLOL ER 25 MG TABLET PO (08:58)
[2022-05-19] MEDS: LOSARTAN 50 MG TABLET PO (08:59)
[2022-05-19] MEDS: DOCUSATE 100 MG CAPSULE PO ×2 (08:59→20:12)
[2022-05-19] MEDS: polyethylene glycoL 3350 17 GM POWD.PACK PO (09:00)
[2022-05-19] MEDS: SODIUM CHLORIDE 0.9% FLUSH 10 ML IV ×2 (09:01→20:12)
[2022-05-19] MEDS: PARoxetine 20 MG TABLET 30 MG PO (09:04)
[2022-05-19] MEDS: APIXABAN 5 MG TABLET PO ×2 (09:04→20:12)
--- NOTE | 2022-05-19 09:22 | PM.PNPO.1 ---
Subjective Subjective Date Patient Seen: 05/19/22 Time Patient Seen: 09:22 Interval history: Postop day 2 right foot ORIF infusion midfoot fracture dislocation spanning fixation of the lateral column. Patient's pain better controlled on p.o. Dilaudid 4 mg q.3 hours. Also adding the Flexeril really helped him with the spasms quite comfortable sitting in bed today. Denies fevers or chills. Discussed that he thinks physician behavioral modification assistant sue crawford and the nurses have all been wonderful. Wiggles his toe. Getting a visit from his son currently Exam Vital Signs (past 8 hours): - 05/19/22 05:00 Temperature 97.4 F L Pulse Rate 75 Respiratory Rate 18 Blood Pressure 113/53 L Pulse Oximetry 98 Oxygen Flow Rate 0 Oxygen Delivery Method Room Air Oxygen Flow Rate 0 Narrative Exam Narrative: Alert and oriented male in no acute distress sitting up in bed. Visiting with family. No acute distress Respiratory exam is unlabored on room air Moving bilateral upper extremities without limitation Right lower extremity in splint. Wiggles great toe. Brisk capillary refill. Calf and thigh soft. Objective Labs Result Diagrams: 05/18/22 08:45 PFSH Medical History Anxiety Arrhythmia Arthritis CAD (coronary artery disease) Carotid artery occlusion Crushing injury of right foot (~03/2022) DVT (deep venous thrombosis) (04/26/22) Easy bruisability HLD (hyperlipidemia) Hypertension Left groin pain Surgical History History of ankle surgery History of photorefractive keratectomy (PRK) Hx of tonsillectomy Hx of total knee arthroplasty Hx of transurethral resection of prostate (01/12/20) Family History Father Hypertension Cancer Diabetes mellitus Social History marital status: household members: spouse Smoking Status: Never smoker alcohol intake: former substance use type: does not use Assessment & Plan Post-op Postoperative Procedures: Procedures Operation Date: 05/17/22 07:45 Actual Procedure Side Surgeon p Open treatment of foot crush injury multiple tarsometatarsal fx dislocations with ORIF & arthrodesis, ORIF internal fixation cuboid & spanning external fixation foot, closed treatment of calcaneus fx Right Dalia Robb MD Postoperative day: 2 Postoperative status: doing well Postoperative status narrative: Doing well postoperatively. Pain better controlled on the oral Dilaudid 4 mg q.3 hours and with the addition of the anti spasmodic. Postoperative plan: routine post-op care Postoperative plan narrative: Postoperative day: 2 Postoperative status: Improved pain control today on oral hydromorphone 4 mg Q 3 hours and the addition of Flexeril Postoperative status narrative: -Stable status post right mark open reduction internal fixation primary arthrodesis and external fixation for right foot crush injury. -postoperative hemorrhagic anemia, asymptomatic -history acute of DVT-restarting his Eliquis today and will continue this on discharge Postoperative plan narrative: -mobilize with PT. Nonweightbearing to the right lower extremity x8 weeks. -elevate ?toes above the nose? as much as possible for the 1st 2-3 weeks after surgery. -continue with multimodal pain management -Patient has a known right popliteal DVT. resume his normal Eliquis dose05/19 which will be 5 mg b.i.d. He will continue on Eliquis 5 mg b.i.d. as an outpatient for continued treatment of the DVT. -Keep splint clean dry and intact. Has external fixator on lateral aspect of the foot. This will stay clean dry and intact. Sutures remain in place 3-6 weeks. -Follow up in clinic in 2 weeks as scheduled. -disposition: SNF in 1-2 days, depending on authorization and clearance from physical therapy. Patient is nonweightbearing on his right lower extremity. He has persisting left leg weakness from a prior injury approximately 20 years ago. His is unable to help much at home. Time Spent With Patient Time with patient: less than 15 minutes Quality VTE Deep Vein Thrombosis/Pulmonary Embolism Present on Admission: Yes
--- NOTE | 2022-05-19 11:37 | PT.IPTN ---
Current Diagnoses Dislocation of tarsometatarsal joint of unspecified foot, initial encounter (05/17/22) Crushing injury of right foot, initial encounter (05/17/22) Surgery Performed Operation Date: 05/17/22 07:45 Actual Procedures p Open treatment of foot crush injury multiple tarsometatarsal fx dislocations with ORIF & arthrodesis, ORIF internal fixation cuboid & spanning external fixation foot, closed treatment of calcaneus fx(Right) - Dalia Robb MD Physical Therapy Treatment Note M2 PT-IP Current Condition Start: 05/18/22 12:10 Freq: NEEDED Status: Active Protocol: Document 05/18/22 11:08 DLM (Rec: 05/18/22 12:40 DLM [id number]) Physical Therapy Current Condition Current Condition Evaluation Date 05/18/22 Treatment Diagnosis right foot ORIF/external fixator, crush injury, impaired gait/mobility Onset Date 05/17/22 M3 PT-IP Subjective Start: 05/18/22 12:10 Freq: NEEDED Status: Active Protocol: Document 05/19/22 11:37 AW (Rec: 05/19/22 12:01 AW [id number]) Subjective Physical Therapy Visit Type Type Treatment Note Visit Start Time 10:55 Visit Stop Time 11:37 Total Visit Minutes 42 Number of VAC PRESS OPERATOR Visits 0 Physical Therapy Visit Comments Patient Comments Pt's pain is better managed today. Patient Goals He wants to get better so he can return home. He understands SNF can help him get stronger. Therapy Pain Assessment Pain When Pain Assessed During Mobility Pain Present Pain Present Pain Reported Location Right Foot Intensity 2 Scale Used Numeric (0 - 10) Description Aching,Tender,Throbbing Pain Management Techniques Distraction,Timing of Activity with Medications M4 PT-IP Mobility and Gait Start: 05/18/22 12:10 Freq: NEEDED Status: Active Protocol: Document 05/19/22 11:37 AW (Rec: 05/19/22 12:01 AW [id number]) PT-Bed Mobility Assessment Supine to Sit Supine to Sit Contact Guard Assistance,Head of Bed Elevated,Bedrails Scooting Scooting to Edge of Bed Contact Guard Assistance PT-Transfer Assessment Sit to and From Stand Sit to and from Stand Moderate Assistance,Maximum Assistance,Use of Upper Extremities Equipment Transfer Assistive Device Gait Belt,Front Wheeled Walker Transfers Transfer Destination Bedside Commode Transfer Technique Squat Pivot Transfer Ability Level of Assist Maximum Assistance,2 Person Assistance,Use of Upper Extremities Comments Mobility Comments Pt sat up EOB CGA. He needed max A to stand with FWW and had difficulty keeping right foot elevated. Cues for LLE alignment were helpful. Pt stood ~30 seconds before needing to sit. He stood again max A and was able to pivot laterally on left foot, moving ~1/2 foot before needing to sit again. Discussed transfer options with pt (slide board vs squat pivot). Pt elected to trial squat pivot. Drop-arm BSC was set up on his left side. Bed and commode seat were level with one another. RN provide 2nd person assist as pt reached across with left arm and completed squat pivot transfer max A x 2. Pt requested to change his pants. With commode arms raised, pt was able to stand mod A with FWW as PT assisted pt to pull down his pants. Pt sat on the BSC and PT switched pants for shorts. Pt stood again mod A with FWW and PT assisted pt to pull up his shorts. Pt was left sitting on the BSC with call light and all needs in reach. Gait Assessment Comments Gait Comments Able to pivot on LLE but only advances 6 inches laterally before needing rest break. Stair Climbing Assessment Comments Stair Climbing Comments unable PT-Balance Assessment Sitting Balance and Reactions Static Sitting Balance Ability Good Dynamic Sitting Balance Ability Good Standing Balance and Reactions Static Standing Balance Ability Poor Dynamic Standing Balance Ability Poor Device Used FWW M5 PT-IP Objective Assessments Start: 05/18/22 12:10 Freq: NEEDED Status: Active Protocol: Document 05/18/22 11:08 [facility] (Rec: 05/18/22 12:40 [facility] [id number]) Orientation Orientation/Cognition Level of Alertness Alert Orientation Name,Age,Birthday,Month,Date, Year,Day of Week,Place, Situation Language Function Ability No Deficits Noted Safety Awareness Understands Safety Issues Memory Description No Deficits Noted Comments good awareness of his current situation, able to give historical information Gross Range of Motion Upper Extremity ROM Assessment Within Functional Limits Impairments mild end range stiffness in shoulders and fingers Lower Extremity ROM Assessment Right Impaired Impairments right foot/ankle casted with no functional movement, external fixator on lateral right foot Strength Upper Extremity Strength Assessment Bilaterally Impaired Shoulder flexion 4+/5 Elbow 5/5 Wrist 5/5 Hand sales apprentice 4-/5 with limitations due to arthritic fingers Lower Extremity Strength Assessment Bilaterally Impaired Hip flexion right 4-/5, left 4/5 Knee extension right 4-/5, left 4/5 Ankle DF right- no functional use, left 4+/5 Comments Strength Comments he describes chronic pain left ankle since his ORIF (s/p fracture) Coordination Assessment Gross Coordination Gross Coordination WNL Sensation Assessment Sensation Gross Sensation WNL Comments Sensation Comments He reports he can feel right toes, the rest of the foot and ankle are wrapped up to his knee and not tested. His left ankle is tender to pressure with mild pitting edema noted in his distal LE. Muscle Tone Muscle Tone WNL Yes M6 PT-IP Treatment Start: 05/18/22 12:10 Freq: NEEDED Status: Active Protocol: Document 05/19/22 11:37 AW (Rec: 05/19/22 12:01 AW [id number]) Physical Therapy Treatment Education Education Provided Weight Bearing Status,Safety M7 PT-IP Assessment and Plan Start: 05/18/22 12:10 Freq: NEEDED Status: Active Protocol: Document 05/19/22 11:37 AW (Rec: 05/19/22 12:01 AW [id number]) PT Summary Assessment and Plan Summary Progress Towards Goals Progressing Toward Goals,Slow Progress - Other Assessment Summary Devonte is very willing to participate with therapy. He tolerated standing ~30 seconds x 4 today today and was able to pivot some on his left foot but had difficulty maintaining NWB LLE during this activity. He completed squat pivot transfer to [facility] max A x 2. He will require SNF rehab to improve strength toward independent transfers for safe return home. Goals Bed Mobility Goal Independent Transfer Goal Moderate Assistance,Slide Board Other Goals Static standing with fWW and CG assist, NWB right LE x 3 min. Days to Meet Goals 7 Frequency of Treatment Frequency Of Treatment Once a Day Treatment Plan Physical Therapy Treatment Plan Bed Mobility Training,Transfer Training,Therapeutic Exercise ,Balance Retraining,Post Op Education,Discharge Planning, Hot or Cold Pack,Neuromuscular Re-ed Precautions Other Precautions right LE DVT after right foot injury, fall risk Weight Bearing Status Weight Bearing Status Non-Weight Bearing Allowed Weight Bearing Amount (enter % right foot/ankle or #) (%) Recommendations To Nursing Amount of Assist Needed 2 Person Assist Discharge Recommendations PT Discharge Recommendations SNF Rehab Transportation Needs at Discharge Wheelchair/Cabulance
--- NOTE | 2022-05-19 12:30 | CM.DPC ---
Addendum entered by Chelsie Austin R.N. 05/19/22 13:50: ANJANA spoke with [facility] today who stated [facility] AUth for SNF is approved # [id number] - CM called Britney at [facility] gave her Auth number and she stated that they can take patient tomorrow most likely around 1130am. Patient PASSR is complete. ANJANA requested RN to get covid swab today for patient so it is ready for tomorrow. Chelsie Austin RNpig farm manager. Original Note: DCP continued: ANJANA called Britney at [facility] and she can accept the patient tomorrow however will need [facility] Auth prior to being able to accept the patient. Britney also wants the patient to know that [facility] will more then likely only authorize two weeks and the patient will either need to pay privately at that point or will need to DC there facility home. Anjana Spoke with patient and explained what Britney stated and patient stated understanding. CM called [facility] at [phone] and left Voice message for them to call back to determine if SNF auth has been approved. ANJANA will continue to work on getting [facility] auth so patient can DC tomorrow to SNF. PASSR Complete. Chelsie Austin RNpig farm manager
[2022-05-19] MEDS: CYCLOBENZAPRINE 10 MG TABLET PO ×2 (14:19→23:27)
[2022-05-19 16:24] LABS: COVID19 -Nasal RAPID Negative (Negative)
--- NOTE | 2022-05-20 04:05 | PC.NURSE ---
Pt is AxOx4, needs 1 person assistance and cooperative. VSS, pt c/o pain and recieved PRN Flexiril with good effect. Otherwise, pt's pain is controlled well with his routine Tylenol. Pt is voiding well. Dressing on R leg C/D/I. No other changes. Continue monitor.
[2022-05-20 04:36] VITALS: BP 104/53; PULSE 71; RESP 18; TEMP 36.2; O2SAT 96
[2022-05-20] MEDS: ACETAMINOPHEN 325 MG TABLET 650 MG PO ×2 (05:03→11:36)
[2022-05-20] MEDS: HYDROMORPHONE 4 MG TABLET PO ×2 (05:07→11:36)
[2022-05-20 07:00] VITALS: BP 108/55; PULSE 63; RESP 18; TEMP 36.4; O2SAT 96
--- NOTE | 2022-05-20 07:35 | P.DS_ITS ---
History of Present Illness History of Present Illness Date Patient Seen: 05/20/22 Time Patient Seen: 07:35 Chief complaint: Right foot pain s/p right foot ORIF Narrative: Patient is complaining of moderate right foot pain this morning, much better controlled with 4 mg of oral Dilaudid every 3 hours and Flexeril. He was working with physical therapy and making progress. He has persisting left leg weakness from a prior injury approximately 20 years ago. Overall he is feeling well and would like to be discharged to the SNF today. Discharge Providers Provider Date of admission: 05/17/22 06:23 Discharge Date: 05/20/22 Primary care physician: Vick Virk MD Consults: 05/17/22 13:51 Consult to Discharge Planning Routine Comment: snf Consult to Physical Therapy Evaluate & Treat Comment: NWB RLE Physician Instructions: Evaluate and Treat Discharge provider: Nelly Pierce PA-C Summary Hospital Course Discharge Diagnosis: 1. Crushing injury of the right foot s97.81 2. Traumatic dislocation and fracture tarsometatarsal joint s93.326 3. Calcaneus fracture 4. Cuboid fracture right foot s92.211 5. BMI 42.9 e66.01 6. Acute deep venous thrombosis popliteal vein right lower extremity i82.431 Hospital Course: ADDENDUMProcedure Arthrodesis tarsometatarsal multiple right CPT code 15502 Open reduction internal fixation right cuboid fracture with bone grafting CPT code 89997 Unilateral application uniplanar external fixation system right CPT code 37585 Closed treatment calcaneus fracture without manipulation right CPT code 92383 Addendum Documented By: Dalia Robb MD 05/17/22 1800 Addendum Signed By: <Electronically signed by Dalia Robb MD> 05/17/22 1800 Operative Date/Time/Diagnoses Date of procedure: 05/17/22 Time of procedure: 08:20 Procedure & Clinicians Same procedure as scheduled: Yes Indications: Patient is a 71-year-old male with a right foot crush injury Lisfranc fracture dislocation variant with cuboid crush injury and nondisplaced calcaneus fractures.? Affecting his midfoot as well as a 2nd metatarsal neck fracture.? He had an old 4th metatarsal neck fracture.? Initial reduction in the emergency room and several weeks were spent waiting for resolution of soft tissues.? During this time he was taking aspirin.? He developed a deep venous thrombosis and was treated with Eliquis.? His soft tissues are now resolved appropriate for intervention.? He has been discussed with the vascular surgeons and internal medicine doctors regarding his medical complexities.? He a he there is no indication for a filter.? We discussed decision making surgical tiny and anticoagulation planning.? Decision was made to proceed with the surgery.? He was bridged from [facility] to [facility] and had greater than 3 weeks of therapeutic treatment prior to surgery. He understands that he has a severe traumatic injury and had pre-existing arthritis.? Risk for persistent symptomatic posttraumatic arthritis and pain.? Surgical planning would be midfoot fusions addressing the tarsometatarsal dislocations ORIF grafting versus external fixation to decompress the lateral column and cuboid crush injury.? Non operative treatment of the calcaneus fractures.? The risks and benefits of the procedure have been discussed with the patient and given the opportunity to ask questions.? He understands he would be bridged back from [facility] to [facility] postoperatively.? He has limited help at home and will require likely fdc postoperatively as he will be nonambulatory.? He will be nonweightbearing on the right lower extremity approximately 8 weeks postoperatively.? If we place a spanning fixator this will remain in place 6-8 weeks.? The risks of surgery include but are not limited to infection, malunion, nonunion, persistence of pain, damage to nerves and blood vessels, posttraumatic arthritis, DVT, PE, coardiopulmonary complications and .? The patient expressed a thorough understanding of the risks and benefits of surgery and has elected to proceed.? Consent was signed in the office today. During the operation, the services of a physician salesperson surgical appliances were medically indicated and necessary to provide the exposure of the operative site for the surgical procedure and to maintain the limb in a proper position to carry out the operation safely and efficiently.? Without a qualified computer assistant being present this would extended the operative procedure and made the procedure technically more difficult to perform. Surgeon: Dalia Robb Supervisor Yard: Nelly Pierce Anesthesia Type: General and Local Operative Notes Findings: Comminuted intra-articular fracture at the base of the 1st tarsometatarsal joint.? Comminuted intra-articular fracture at the base of the 2nd metatarsal extending into the tarsometatarsal joint.? Minimally angulated 2nd metatarsal fracture.? Healed old 4th metatarsal neck fracture highly comminuted cuboid crush injury with extensive scarring and impaction.? Shortening of the lateral column Closure Type: primary Specimen(s): none sent Prosthetic devices, grafts, tissues, transplants, or devices: Arthrex 3.5 solid screws x2--1st TMT fusion Arthrex 2.4 mm T-plate with 2.4 locking screws proximally 2.4 locking and nonlocking screws distally Arthrex small external fixator for lateral column spanning device for cuboid crush injury.? 3 mm pins x2 in the 5th metatarsal 3 mm pins x2 calcaneus, clamps and 200 mm carbon fiber bar c Estimated Blood Loss (mL): 100 Blood products transfused: none Tourniquet time (min): 130 Status at Discharge Cognitive/behavioral status at discharge: at baseline, oriented Functional status at discharge: uses cane/walker Overall status at discharge: patient is progressing back to baseline Exam Vital Signs (past 8 hours): - 05/20/22 04:36 Temperature 97.2 F L Pulse Rate 71 Respiratory Rate 18 Blood Pressure 104/53 L Pulse Oximetry 96 Oxygen Flow Rate 0 Oxygen Delivery Method Room Air Oxygen Flow Rate 0 Narrative Exam Narrative: Pleasant 71-year-old male, resting comfortably in bed, no acute distress. Right lower extremity is in a splint and is elevated with pillows. Splint is clean, dry, intact. There is no discharge on bandage. He is able to wiggle his toes. Bilateral calves are soft and nontender to palpation. Objective Labs Result Diagrams: 05/18/22 08:45 Labs: Laboratory Results - last 24 hr 05/19/22 16:00 SARS-CoV-2 (PCR) Negative [facility] Medical History Anxiety Arrhythmia Arthritis CAD (coronary artery disease) Carotid artery occlusion Crushing injury of right foot (~03/2022) DVT (deep venous thrombosis) (04/26/22) Easy bruisability HLD (hyperlipidemia) Hypertension Left groin pain Surgical History History of ankle surgery History of photorefractive keratectomy (PRK) Hx of tonsillectomy Hx of total knee arthroplasty Hx of transurethral resection of prostate (01/12/20) Family History Father Hypertension Cancer Diabetes mellitus Social History marital status: household members: spouse Smoking Status: Never smoker alcohol intake: former substance use type: does not use Discharge Assessment & Plan Assessment and Plan Assessment: -Stable status post right foot open reduction internal fixation primary arthrodesis and external fixation for right foot crush injury. -postoperative hemorrhagic anemia, asymptomatic? -history acute of DVT-resumed his Eliquis and will continue this on discharge Plan of Treatment: -mobilize with PT. Nonweightbearing to the right lower extremity x8 weeks. -elevate ?toes above the nose? as much as possible for the 1st 2-3 weeks after surgery.? -continue with multimodal pain management. Improved pain control today on oral hydromorphone 4 mg Q 3 hours and the addition of Flexeril. -Patient has a known right popliteal DVT.? resume his normal Eliquis dose 05/19 which will be 5 mg b.i.d.? He will continue on Eliquis 5 mg b.i.d. as an outpatient for continued treatment of the DVT. -Keep splint clean dry and intact.? Has external fixator on lateral aspect of the foot.? This will stay clean dry and intact.? Sutures remain in place 3-6 weeks. ? -Follow up in clinic in 2 weeks as scheduled. ? -disposition: SNF today, depending on authorization and clearance from physical therapy.? Patient is nonweightbearing on his right lower extremity.? He has persisting left leg weakness from a prior injury approximately 20 years ago.? His is unable to help much at home. Discharge Plan Discharge Plan Patient Disposition: SNF Discharge orders & Medications Prescriptions: New hydromorphone [Dilaudid] 4 mg tablet 4 mg PO Q3H PRN (Reason: pain, severe) Qty: 42 0RF docusate sodium 100 mg Capsule 100 mg PO BID PRN (Reason: constipation) Qty: 30 0RF cyclobenzaprine 10 mg Tablet 10 mg PO Q8HR PRN (Reason: Spasms) Qty: 60 0RF acetaminophen 325 mg Tablet 650 mg PO Q6H MDD Max 3000 mg per day PRN (Reason: fever or pain) Qty: 90 0RF Continued trospium 20 mg tablet 60 mg PO DAILY Label Comments: 05/02/22-PT CURRENTLY NOT TAKING losartan 50 mg tablet 50 mg PO DAILY cetirizine [Aller-Jennifer] 10 mg tablet 5 mg PO DAILY PRN (Reason: Allergies) furosemide 40 mg Tablet 40 mg PO DAILY paroxetine HCl 30 mg Tablet 30 mg PO DAILY montelukast 10 mg Tablet 10 mg PO DAILY metoprolol succinate 25 mg Tablet Extended Release 24 Hr 25 mg PO DAILY rosuvastatin 20 mg Tablet 20 mg PO DAILY Eliquis 5 mg Tablet 5 mg PO BID aspirin [Aspir-81] 81 mg Tablet,Delayed Release (Dr/Ec) 81 mg PO BID Discontinued hydrocodone-acetaminophen 5-325 mg tablet 1 tab PO Q4-6H PRN (Reason: pain) Qty: 20 0RF oxycodone 5 mg Tablet 5 mg PO Q6H PRN (Reason: Pain) Follow up/Referrals: Dalia Robb MD [Physician] - (10-14 days as scheduled for your postoperative visit) Vick Virk MD [Primary Care Provider] - Diet/Activity/Treatments Diet: Diet as Tolerated Other treatments: -Nonweightbearing to the right lower extremity x8 weeks. -elevate ?toes above the nose? as much as possible for the 1st 2-3 weeks after surgery. -Keep splint clean dry and intact. Has external fixator on lateral aspect of the foot. This will stay clean dry and intact. Sutures remain in place 3-6 weeks. -Follow up in clinic in 2 weeks as scheduled. At-Home Instructions - Dr. Robb Cast/Splint/Dressing Care Instructions 1) Keep cast/dressing clean and dry. 2) May bathe - but cast/dressing must remain dry. 3) Should the cast become wet, you need to come into emergency department or call your physician's clinic immediately for cast removal and replacement. Moisture can cause skin breakdown and lead to infection if left untreated. 4) Do not stick any sharp object down the cast to itch, as this can cause scrapes/cuts/punctures which can lead to infection. 6) Observe for increasing pain in the extremity with the cast, finger/toe-tips turning blue/purple, or numbness and tingling in your toes/fingers. Should any of these symptoms arise, you need to be seen immediately for evaluation of swelling and increasing compartment pressures within your affected extremity. 7) Keep your affected extremity elevated - Toes Above your Nose? - This is fernandez in the first two weeks after surgery to minimize swelling. 8) You may ice your extremity, being careful to prevent melting ice from satur ating into the splint/cast. Activity No heavy lifting greater than 10 pounds. No driving while on narcotic pain medication. Do not get your dressing/cast/splint wet! You must remain non-weight bearing on your operative extremity. Use crutches or a walker for ambulation. No driving until you are otherwise instructed by your physician. This will be addressed at your first follow-up appointment. Follow-Up/Emergency Contacts Please call for an appointment in either [place] or [place], if one has not been scheduled. Follow up 2 weeks after surgery. [phone]--I have asked our clinic to schedule follow-up appointment with you on FridayMay 02.-- Contact the office if you have any of the following: ? Painful swelling or numbness ? Unrelenting pain ? Fever (over 101?- it is normal to have a low grade fever for the first day or two following surgery) or chills ? Redness around the incisions ? Color changes ? Continuous bleeding or drainage from the incision (a small amount is expected) ? Excessive nausea or vomiting ? Difficulty breathing If you have an emergency that requires immediate attention, proceed to the nearest emergency room. Blood Clot Prophylaxis Continue with your normal Eliquis to prevent and treat your most recent blood clot. -Patient has a known right popliteal DVT. He will resume treatment for this on postoperative day 1 in the morning with Lovenox therapeutic 100 mg b.i.d.--he will get this for 2 doses on 05/18/2022 the morning and evening dose. Then on 05/19/2022 he will stop the Lovenox and resume his normal Eliquis dose which will be 5 mg b.i.d. He will continue on Eliquis 5 mg b.i.d. as an outpatient for continued treatment of the DVT. Pain Medications: It is the policy of [facility] that narcotic medications will only be refilled during office hours. Additionally, due to the alarming rate of narcotic pain medication abuse/dependence, it has become necessary for physician pract ices to closely manage patient use of prescription narcotic pain relievers, such as Vicodin ([place]), Percocet, and Oxycodone products. Narcotic pain management in the postoperative period may not exceed 6 weeks. If narcotic pain management is required beyond 90 days, then a referral to a Chronic Pain Specialist will be made. If a request for a medication prescription has been made, the physician must review your chart prior to authorizing the request. Please be patient with office staff. If you call during patient hours, your call may not be returned until the end of the day. Dr. Dalia Robb [address] [email or web address] Skin/Wound/Dressing Care Report to your healthcare provider any signs of infection, such as:: chills, fever, night sweats, unusual drainage and unusual redness Visit Report/Discharge Packet Stand Alone Forms: Surgery Discharge Discharge Data Primary Care Provider: Vick Virk VTE Deep Vein Thrombosis/Pulmonary Embolism Present on Admission: Yes
[2022-05-20] MEDS: DOCUSATE 100 MG CAPSULE PO (08:41)
[2022-05-20] MEDS: ATORVASTATIN 20 MG TABLET 40 MG PO (08:41)
[2022-05-20] MEDS: APIXABAN 5 MG TABLET PO (08:41)
[2022-05-20] MEDS: FUROSEMIDE 40 MG TABLET PO (08:42)
[2022-05-20] MEDS: LOSARTAN 50 MG TABLET PO (08:42)
[2022-05-20] MEDS: PARoxetine 20 MG TABLET 30 MG PO (08:42)
[2022-05-20] MEDS: MONTELUKAST 10 MG TABLET PO (08:42)
[2022-05-20] MEDS: CYCLOBENZAPRINE 10 MG TABLET PO (08:45)
[2022-05-20] MEDS: polyethylene glycoL 3350 17 GM POWD.PACK PO (08:46)
[2022-05-20] MEDS: LORATADINE 10 MG TABLET 5 MG PO (08:46)
[2022-05-20] MEDS: METOPROLOL ER 25 MG TABLET PO (08:46)
[2022-05-20] MEDS: SODIUM CHLORIDE 0.9% FLUSH 10 ML IV (08:47)
[2022-05-20 09:55] VITALS: BP 108/55; PULSE 63
--- NOTE | 2022-05-20 10:50 | PT.IPTN ---
Current Diagnoses Dislocation of tarsometatarsal joint of unspecified foot, initial encounter (05/17/22) Crushing injury of right foot, initial encounter (05/17/22) Surgery Performed Operation Date: 05/17/22 07:45 Actual Procedures p Open treatment of foot crush injury multiple tarsometatarsal fx dislocations with ORIF & arthrodesis, ORIF internal fixation cuboid & spanning external fixation foot, closed treatment of calcaneus fx(Right) - Dalia Robb MD Physical Therapy Treatment Note M2 PT-IP Current Condition Start: 05/18/22 12:10 Freq: NEEDED Status: Discharge Protocol: Document 05/20/22 10:25 SP (Rec: 05/20/22 14:10 SP [id number]) Physical Therapy Current Condition Current Condition Evaluation Date 05/18/22 Treatment Diagnosis right foot ORIF/external fixator, crush injury, impaired gait/mobility Onset Date 05/17/22 M3 PT-IP Subjective Start: 05/18/22 12:10 Freq: NEEDED Status: Discharge Protocol: Document 05/20/22 10:25 SP (Rec: 05/20/22 14:10 SP [id number]) Subjective Physical Therapy Visit Type Type Treatment Note Visit Start Time 10:25 Visit Stop Time 10:50 Total Visit Minutes 25 Notes SPTA Ac or nursing provided 2nd person assist as needed during transfers while under direct supervision and direction of HEDGE [employer]D TRADER Stefany throughout tx. Number of HEDGE [employer]D TRADER Visits 1 Physical Therapy Visit Comments Patient Comments Pt agreeable to working with therapy, goal to use slide board for BSC transfer. Patient Goals Agreeable to SNF for progress strength for functional independence before able to return home. Therapy Pain Assessment Pain When Pain Assessed During Mobility Pain Present Pain Present Pain Reported M4 PT-IP Mobility and Gait Start: 05/18/22 12:10 Freq: NEEDED Status: Discharge Protocol: Document 05/20/22 10:25 SP (Rec: 05/20/22 14:10 SP [id number]) PT-Bed Mobility Assessment Sit to Supine Sit to Supine Minimal Assistance,1 Person Assistance,Bedrails Scooting Scooting to Edge of Bed Standby Assistance Scooting Up and Down in Bed Standby Assistance,Contact Guard Assistance PT-Transfer Assessment Sit to and From Stand Sit to and from Stand Moderate Assistance,1 Person Assistance,Use of Upper Extremities Equipment Transfer Assistive Device Gait Belt,Front Wheeled Walker ,Sliding Board Orthotic/Prosthetic Devices or Brace: Yes Transfers Transfer Destination Bed,Bedside Commode Transfer Technique Lateral Scoot Transfer Ability Level of Assist Contact Guard Assistance, Moderate Assistance,Use of Upper Extremities Comments Mobility Comments Pt was seated at EOB with nursing staff in room when arrived. Pt agreeable HEDGE [employer]D TRADER/SPTA taking over care. Pt had gait belt donned. Provided covered slide board, Instructed pt R trunk lean w/CGA for safety via SPTA while placed slide board under R pelvic area and across drop arm BSC to patient 's left. CGA for maintaining board positioning, pt self scooted to L to BSC with Mod cues for positioning feedback. Assist required for removal of slide board. LLE WB into modified stand BUE on BSC arm rests, CGA at gait belt by nursing and assist of HEDGE [employer]D TRADER for undergarment lowering fair maintaining RLE NWB, physical assist of BSC stability for safety required Pt was productive self use urinal and BM. Nursing provided change of undergarment and pants then provided hygiene assist to pt in sitting. STS Mod A x2 using FWW to allow elevate donning clothing in standing. Max cues for maintaining NWB RLE static stand, improved but still slight wB during lateral scoot on LLE BSC to bed and descent sit on bed Mod A x2 w/ FWW. Sit>supine Min A for RLE into bed support. SBA with cues for use bed rails and LLE pushon bed scoot up in bed. Pt had call light and all needs in reach before left . Gait Assessment Comments Gait Comments stand lateral scoot approx 8 inches on LLE BSC>bed Mod A x2 , occasional assist for FWW repositioning before close enough to sit, unable to back scoot 2 complete to bed. Not consistantly NWB on RLE. Stair Climbing Assessment Comments Stair Climbing Comments unable PT-Balance Assessment Sitting Balance and Reactions Static Sitting Balance Ability Normal Dynamic Sitting Balance Ability Good Standing Balance and Reactions Static Standing Balance Ability Poor Dynamic Standing Balance Ability Poor Device Used FWW M5 PT-IP Objective Assessments Start: 05/18/22 12:10 Freq: NEEDED Status: Discharge Protocol: Document 05/18/22 11:08 DLM (Rec: 05/18/22 12:40 DLM [id number]) Orientation Orientation/Cognition Level of Alertness Alert Orientation Name,Age,Birthday,Month,Date, Year,Day of Week,Place, Situation Language Function Ability No Deficits Noted Safety Awareness Understands Safety Issues Memory Description No Deficits Noted Comments good awareness of his current situation, able to give historical information Gross Range of Motion Upper Extremity ROM Assessment Within Functional Limits Impairments mild end range stiffness in shoulders and fingers Lower Extremity ROM Assessment Right Impaired Impairments right foot/ankle casted with no functional movement, external fixator on lateral right foot Strength Upper Extremity Strength Assessment Bilaterally Impaired Shoulder flexion 4+/5 Elbow 5/5 Wrist 5/5 Hand relay tester 4-/5 with limitations due to arthritic fingers Lower Extremity Strength Assessment Bilaterally Impaired Hip flexion right 4-/5, left 4/5 Knee extension right 4-/5, left 4/5 Ankle DF right- no functional use, left 4+/5 Comments Strength Comments he describes chronic pain left ankle since his ORIF (s/p fracture) Coordination Assessment Gross Coordination Gross Coordination WNL Sensation Assessment Sensation Gross Sensation WNL Comments Sensation Comments He reports he can feel right toes, the rest of the foot and ankle are wrapped up to his knee and not tested. His left ankle is tender to pressure with mild pitting edema noted in his distal LE. Muscle Tone Muscle Tone WNL Yes M6 PT-IP Treatment Start: 05/18/22 12:10 Freq: NEEDED Status: Discharge Protocol: Document 05/20/22 10:25 SP (Rec: 05/20/22 14:10 SP [id number]) Physical Therapy Treatment Education Education Provided Weight Bearing Status,Safety Other Treatments Other Treatment Performed Discussed has concerns how to mobilize getting into trailer scoot back on top step, then retro scoot inside but not able to get from floor to elevating recliner without WB on RLE at this time. M7 PT-IP Assessment and Plan Start: 05/18/22 12:10 Freq: NEEDED Status: Discharge Protocol: Document 05/20/22 10:25 SP (Rec: 05/20/22 14:10 SP [id number]) PT Summary Assessment and Plan Potential Rehabilitation Potential Good Status of Condition at Evaluation Evolving Summary Impairments Pain,ROM,Strength,Balance,Bed Mobility,Transfers,Gait, Activity Tolerance Progress Towards Goals Progressing Toward Goals,Slow Progress due to Pain,Slow Progress due to Activity Tolerance,Slow Progress - Other Assessment Summary Pt requires Mod A x2 pivot transfer w/ FWW with inconsistant with maintaining NWB on RLE, CGA slide board transfer good demo no WB on RLE. Recommend SNF for progression in strength for mobility. Will need to ascend stairs and possibly complete a floor transfer (as peformed sequencing prior admission) to elevating recliner to return to trailer/home. There is no one at home to provide physical assist required at this time. Will continue to assess progress. Goals Bed Mobility Goal Independent Transfer Goal Moderate Assistance,Slide Board Other Goals Static standing with fWW and CG assist, NWB right LE x 3 min. Days to Meet Goals 7 Frequency of Treatment Frequency Of Treatment Once a Day Treatment Plan Physical Therapy Treatment Plan Bed Mobility Training,Transfer Training,Therapeutic Exercise ,Balance Retraining,Post Op Education,Discharge Planning, Hot or Cold Pack,Neuromuscular Re-ed Other Recommendations and Next Treatment Continue slide board transfers Focus for safety allow maintaining NWB RLE. STS with FWW if able maintain NWB RLE. Precautions Other Precautions right LE DVT after right foot injury, fall risk Weight Bearing Status Weight Bearing Status Non-Weight Bearing Allowed Weight Bearing Amount (enter % right foot/ankle or #) (%) Recommendations To Nursing Amount of Assist Needed 2 Person Assist Discharge Recommendations PT Discharge Recommendations SNF Rehab
--- NOTE | 2022-05-20 13:01 | PC.NURSE ---
a/o, voices needs. 1-2 pa ADLs and mobility, using slider board for transfers. OOB to BSC for large soft BM. + csm checks, mobility is much improved since patient began taking flexeril. PRN dilauded PO for BTP. d/c orders received. call to [facility] to give report. spoke w/ ILANA Taylor. patient left floor via w/c transport, escorted by [facility] employee.
== END 2022-05-20 12:20 | DRG 908 ==
PROVIDERS: Admitting Provider Orthopaedic Surgery Foot and Ankle Surgery; PCP Family Medicine; Referring Provider Orthopaedic Surgery Foot and Ankle Surgery; Visit Provider Orthopaedic Surgery Foot and Ankle Surgery
PROC: 0QSN04Z Reposition Right Metatarsal with Internal Fixation Device, Open Approach (ICD-10-PCS; CPT 28715; principal; 2022-05-17 07:45)
DX: S97.81XA Crushing injury of right foot, initial encounter (principal); I82.431 Acute embolism and thrombosis of right popliteal vein; S92.311A Displaced fracture of first metatarsal bone, right foot, initial encounter for closed fracture; S92.321A Displaced fracture of second metatarsal bone, right foot, initial encounter for closed fracture; S92.211A Displaced fracture of cuboid bone of right foot, initial encounter for closed fracture; S92.001A Unspecified fracture of right calcaneus, initial encounter for closed fracture; I10 Essential (primary) hypertension; E78.5 Hyperlipidemia, unspecified; F41.9 Anxiety disorder, unspecified; W23.0XXA Caught, crushed, jammed, or pinched between moving objects, initial encounter; Z20.822 Contact with and (suspected) exposure to COVID-19; Z79.01 Long term (current) use of anticoagulants
CPT/HCPCS: 36415; 73630; 76000; 85027; 87635; 97162; 97530; C9803; C1713; J0171; J0330; J0690; J1170; J1650; J2704; J3010

== ENCOUNTER → 2022-07-09 12:38 | Outpatient (CLI) | payer OTHER, SELFPAY ==
[2022-05-17 21:48] VITALS: BMI 42.9
[2022-07-09 13:25] LABS: COVID19 -Nasal RAPID Negative (Negative)
== END ==
PROVIDERS: PCP Family Medicine; Referring Provider Orthopaedic Surgery Foot and Ankle Surgery; Visit Provider Orthopaedic Surgery Foot and Ankle Surgery
DX: Z20.822 Contact with and (suspected) exposure to COVID-19 (principal)
CPT/HCPCS: 87635; C9803

== ENCOUNTER 2022-07-12 13:02 | Day surgery (SDC) | payer OTHER, SELFPAY ==
[2022-05-17 21:48] VITALS: BMI 42.9
[2022-07-11 08:28] VITALS: BMI 40.8
--- NOTE | 2022-07-12 13:45 | SUR.OPER ---
Supine on padded OR bed, head on pillow, arms secured on padded arm boards at <90 degrees abduction, legs uncrossed, safety belt at abdomen, tape over blanket over nonoperative leg.
[2022-07-12 13:46] VITALS: BP 113/75; PULSE 69; RESP 18; TEMP 36.7; O2SAT 96; BMI 40.8
[2022-07-12] MEDS: LACTATED RINGERS 1,000 ML 84 ML IV (14:05)
--- NOTE | 2022-07-12 15:27 | PM.PREOP ---
Pre-operative Note COVID-19 COVID-19 status: Negative Interval Note History & Physical reviewed/Exam performed by Physician: Yes Changes to H&P: No
[2022-07-12] MEDS: CEFAZOLIN 2 GM/100 ML PREMIX 100 ML IV (16:00)
[2022-07-12 16:31] VITALS: BP 94/68; PULSE 61; RESP 11; TEMP 36.6; O2SAT 98
[2022-07-12 16:32] VITALS: BP 99/63; PULSE 59; RESP 11; RESP 14; O2SAT 98
[2022-07-12 16:36] VITALS: BP 115/70; PULSE 61; RESP 11; O2SAT 100
[2022-07-12 16:41] VITALS: BP 123/69; PULSE 59; RESP 11; O2SAT 100
--- NOTE | 2022-07-12 16:41 | SUR.PHASEI ---
Patient sitting up drinking beverage without difficulty. GCS 15; denies pain or nausea. VSS.
--- NOTE | 2022-07-12 19:18 | P.OP_ITS ---
Operative Date/Time/Diagnoses Date of procedure: 07/12/22 Time of procedure: 15:30 Pre-op diagnosis: Crush injury right foot, traumatic dislocation tarsometatarsal joint Post-op diagnosis: same Procedure & Clinicians Procedure: Staged Removal unit planar external fixator device from right foot CPT code 28366 This is a staged procedure for a planned removal of external fixation device performed with a modifier # 58 Same procedure as scheduled: Yes Indications: Patient is a 71-year-old male that had a crush injury to his l right foot. He sustained multiple fractures and tarsometatarsal dislocation and a significant lateral column crush injury. He is undergone staged fixation with ORIF and placement of external fixator for the lateral column of his foot. He is now ready for removal of his unit planer external fixator. This is a staged procedure. The risks and benefits of the procedure have been discussed with the patient and given the opportunity to ask questions. The risks of surgery include but are not limited to infection, malunion, nonunion, persistence of pain, damage to nerves and blood vessels, posttraumatic arthritis, DVT, PE, cardiopulmonary complications. The patient expressed understanding and wishes to proceed. Consent was signed. Surgeon: Dalia Robb Click Yes if Unassisted: Yes Anesthesia Type: MAC +/- Operative Notes Findings: Uni planar external fixator lateral column right foot. Posterior calcaneal pin site is little goopy. No erythema. Otherwise copious dry skin over the foot. Previous midfoot incision site with resolving eschar. No signs of infection. Calf is soft. Closure Type: not applicable Specimen(s): none sent Estimated Blood Loss (mL): 2 Blood products transfused: none Tourniquet time (min): 0 Procedure in detail: Patient was seen in the preoperative area the site of surgery was marked informed consent obtained. The patient was brought back to the operating room by the anesthesia team positioned the supine position. Bony prominences well padded. Mac anesthesia was obtained. Formal time-out procedure was performed confirming the patient's side and site of surgery administration of appropriate antibiotic. The leg was prepped and draped appropriately. All were in agreement. Attention turned to the right foot where the unit planer external fixator was in place. Additional incisions had healed with resolving eschar. No signs of infection. The external fixator was scrubbed and then prepped with Betadine. At this point the clamps were removed using the wrenches and then the pins were removed using the T-handle chucks. Following this the pin hole site which were 2 in the 5th metatarsal and 2 in the calcaneus were then curetted. The most posterior calcaneal pin site was a little goopy but there is no other abnormalities. Once curetting was completed these were irrigated. No closure was felt to be needed. Dressings were placed with Xeroform gauze and a posterior splint with ortho glass. Patient was then awoken from anesthetic and taken to the recovery room in good condition. There no immediate complications from this procedure. Counts were correct. Complications: none Post-operative Condition: stable Disposition: PACU Plan for aftercare: Nonweightbearing right lower extremity. Keep splint in place. Follow-up in [facility] as scheduled at that time plan will be to go into a walking boot take repeat x-rays and likely start progressive weight-bearing. He will co ntinue home Eliquis anticoagulation. We will do a precautionary Keflex prescription for the pin sites.
== END 2022-07-12 17:43 | disposition home or self-care (01) ==
PROVIDERS: PCP Family Medicine; Referring Provider Orthopaedic Surgery Foot and Ankle Surgery; Visit Provider Orthopaedic Surgery Foot and Ankle Surgery
PROC: (CPT 20694; principal; 2022-07-12 14:15)
DX: Z47.2 Encounter for removal of internal fixation device (principal); S97.81XD Crushing injury of right foot, subsequent encounter; S93.324D Dislocation of tarsometatarsal joint of right foot, subsequent encounter; W20.8XXD Other cause of strike by thrown, projected or falling object, subsequent encounter
CPT/HCPCS: 20694; J0690; J2250; J2704; J3010

== ENCOUNTER 2022-11-07 16:58 | Emergency (ER) | payer OTHER, SELFPAY ==
[2022-05-17 21:48] VITALS: BMI 42.9
[2022-11-07 17:25] VITALS: BP 142/81; PULSE 63; RESP 18; TEMP 36.6; O2SAT 96; BMI 41.0
--- NOTE | 2022-11-07 17:30 | DI.RAD.S_ITS ---
PROCEDURE: XR RIBS LT MIN 3V W CXR1V INDICATIONS: fall, pain TECHNIQUE: Two views of the left ribs were acquired, along with a single view chest. COMPARISON: None. FINDINGS: Surgical changes and devices: None. Bones and chest wall: Minimally displaced left lateral 9th rib fracture. There is a slight buckle deformity without lucent plane seen of the left 7th and six ribs. Lungs and pleura: No pleural effusions or pneumothorax. Lungs appear clear. Mediastinum: Mediastinal contours appear normal. Heart size is normal. IMPRESSION: 1. Left lateral rib fractures, potentially acute and/or subacute. 2. The underlying lung appears normal. Dictated by: Gayatri Galeana M.D. on 11/07/2022 at 17:49 Approved by: Gayatri Galeana M.D. on 11/07/2022 at 18:15
--- NOTE | 2022-11-07 18:34 | ED_ITS ---
HPI - Fall <Radha Velasco PA-C - Last Filed: 11/07/22 20:38> General Chief Complaint: Fall Stated Complaint: GLF Landed on Lside of ribs/ lots of pain Time Seen by Provider: 11/07/22 18:20 Source: patient Mode of arrival: Wheelchair History of Present Illness HPI Narrative: 72-year-old male presents with concern for left flank/side pain after he fell today at home. Patient states that he was coming around the corner in his kitchen and his dog had ?piddled on the floor? and he slipped and went down onto a stool in the kitchen with his left side and flank hitting the edge of the stool. He states he did not hit his head or sustain any other injuries. He notes he has been recovering from a right ankle/foot injury and walks with a 4 point cane. He has no other complaints but does state that he has quite a bit of pain at the site of impact and also in the front of his rib on the left side. He states he has been able to breathe okay but is hoping for something to help with the pain. He states he does have a history of problems with muscle spasms in his previously taken cyclobenzaprine with some good effect particularly appeared with pain medicine. He did take 09/11/2024 hydrocodone shortly after this happened earlier today. He denies any other complaints or concerns including dizziness, lightheadedness, generalized abdominal pain, blood in his urine, blood in his stool, any other injury, loss of consciousness, hitting his head, neck pain or any other symptoms. Related Data Home Medications Medication Instructions Recorded Confirmed cetirizine 10 mg tablet (Aller-Jennifer) 5 mg PO DAILY PRN Allergies 02/24/19 07/12/22 losartan 50 mg tablet 50 mg PO DAILY 02/24/19 07/12/22 apixaban 5 mg tablet (Eliquis) 5 mg PO BID 05/02/22 07/12/22 furosemide 40 mg tablet 40 mg PO DAILY 05/02/22 07/12/22 metoprolol succinate 25 mg 25 mg PO DAILY 05/02/22 07/12/22 tablet,extended release 24 hr montelukast 10 mg tablet 10 mg PO DAILY 05/02/22 07/12/22 paroxetine HCl 30 mg tablet 30 mg PO DAILY 05/02/22 07/12/22 rosuvastatin 20 mg tablet 20 mg PO DAILY 05/02/22 07/12/22 Previous Rx's Medication Instructions Recorded cyclobenzaprine 10 mg tablet 10 mg PO Q8HR PRN Spasms #60 tabs 05/20/22 docusate sodium 100 mg capsule 100 mg PO BID PRN constipation #30 05/20/22 caps hydromorphone 4 mg tablet 4 mg PO Q3H PRN pain, severe #42 05/20/22 (Dilaudid) tabs cephalexin 500 mg tablet 500 mg PO QID #20 tabs 07/12/22 cyclobenzaprine 10 mg tablet 10 mg PO TID PRN muscle spasm 10 11/07/22 days #30 tabs hydrocodone 10 mg-acetaminophen 1 tab PO Q6-8H PRN pain 3 days #14 11/07/22 325 mg tablet tabs lidocaine 5 % topical ointment 1 applic topical TID PRN pain #30 11/07/22 grams Allergies Allergy/AdvReac Type Severity Reaction Status Date / Time No Known Drug Allergies Allergy Verified 11/07/22 17:30 Review of Systems <Radha Velasco PA-C - Last Filed: 11/07/22 20:38> Review of Systems Narrative: See HPI Patient History <Radha Velasco PA-C - Last Filed: 11/07/22 20:38> Medical History Anxiety Arrhythmia Arthritis CAD (coronary artery disease) Carotid artery occlusion Crushing injury of right foot (~03/2022) DVT (deep venous thrombosis) (04/26/22) Easy bruisability HLD (hyperlipidemia) Hypertension Left groin pain Surgical History History of ankle surgery History of photorefractive keratectomy (PRK) Hx of tonsillectomy Hx of total knee arthroplasty Hx of transurethral resection of prostate (01/12/20) S/P foot surgery, right (05/17/22) Family History Father Hypertension Cancer Diabetes mellitus Social History marital status: household members: spouse Smoking Status: Never smoker alcohol intake: former substance use type: does not use Smoking Status: Never smoker alcohol intake frequency: 0-2 drinks per day Substance Use Type: does not use Exam <Radha Velasco PA-C - Last Filed: 11/07/22 20:38> Narrative Exam Narrative: GENERAL: [72] year old patient appears stated age. Well-developed patient, in mild distress, uncomfortable appearing, movement/position changes cause increased discomfort HEAD: Atraumatic. Normocephalic. EYES: Pupils equal round and reactive. Extraocular motions intact. No scleral icterus. No injection or drainage. ENT: Nose without bleeding, purulent drainage. Airway patent. NECK: Trachea midline. CARDIOVASCULAR: Regular rate and rhythm without murmurs, gallops, or rubs. RESPIRATORY: No increased work of breathing or respiratory distress Clear to auscultation. Breath sounds equal bilaterally. No wheezes, rales, or rhonchi. GASTROINTESTINAL: Abdomen soft, protuberant, there is tenderness at the costal margin on the anterior left ribs. Patient has notable purple bruising approximately 4-5 cm in length following the path of his 9th rib on the left posterior flank. He also has tenderness up higher between ribs 5-7. Otherwise abdomen is Non-tender, nondistended. EXTREMITIES: No edema or joint tenderness. BACK: C-spine, T and L-spine are without midline tenderness, deformity or step- offs. See GI. Otherwise Nontender without deformity or crepitance. No flank tenderness. NEURO: AOx3. SKIN: No rash or erythema of visible areas Initial Vital Signs Initial Vital Signs: Vital Signs Temperature 97.9 F 11/07/22 17:25 Pulse Rate 63 11/07/22 17:25 Respiratory Rate 18 11/07/22 17:25 Blood Pressure 142/81 H 11/07/22 17:25 Pulse Oximetry 96 11/07/22 17:25 Oxygen Delivery Method Room Air 11/07/22 17:25 <Cait Angel DO - Last Filed: 11/08/22 04:40> Initial Vital Signs Initial Vital Signs: Vital Signs Temperature 97.9 F 11/07/22 17:25 Pulse Rate 63 11/07/22 17:25 Respiratory Rate 18 11/07/22 17:25 Blood Pressure 142/81 H 11/07/22 17:25 Pulse Oximetry 96 11/07/22 17:25 Oxygen Delivery Method Room Air 11/07/22 17:25 Course <Radha Velasco PA-C - Last Filed: 11/07/22 20:38> Course Course Narrative: did discuss the pt with Dr Angel, attending physician, who agrees with the plan. 2009 Orders Ordered: Discontinued Medications Hydrocodone Bitart/Acetaminophen (Hydrocodone/Acet 10/325 Tablet) 1 tab PO NOW ONE Stop: 11/07/22 20:01 Last Admin: 11/07/22 20:23 Dose: 1 tab Documented By: AP Cyclobenzaprine HCl (Cyclobenzaprine 10 Mg Tablet) 10 mg PO NOW ONE Stop: 11/07/22 20:11 Last Admin: 11/07/22 20:22 Dose: 10 mg Documented By: AP Vital Signs Vital signs: Vital Signs - 8 hr 11/07/22 20:58 Pulse Rate 64 Respiratory Rate 20 Blood Pressure 140/80 Pulse Oximetry 96 Oxygen Delivery Method Room Air <Cait Angel DO - Last Filed: 11/08/22 04:40> Orders Ordered: Discontinued Medications Hydrocodone Bitart/Acetaminophen (Hydrocodone/Acet 10/325 Tablet) 1 tab PO NOW ONE Stop: 11/07/22 20:01 Last Admin: 11/07/22 20:23 Dose: 1 tab Documented By: AP Cyclobenzaprine HCl (Cyclobenzaprine 10 Mg Tablet) 10 mg PO NOW ONE Stop: 11/07/22 20:11 Last Admin: 11/07/22 20:22 Dose: 10 mg Documented By: AP Vital Signs Vital signs: Vital Signs - 8 hr 11/07/22 20:58 Pulse Rate 64 Respiratory Rate 20 Blood Pressure 140/80 Pulse Oximetry 96 Oxygen Delivery Method Room Air MDM - Fall <Radha Velasco PA-C - Last Filed: 11/07/22 20:38> Differential Diagnosis Differential diagnosis: Likely other (rib fracture, multiple rib fractures, sprain, strain, muscle spasm) Imaging Data XR ribs: My Impression: Agree with Radiology interpretation Radiologist's Impression: [address] [address] XRay Report Signed Patient: Devonte Obrien MR#: [id number] : 1950 Acct:[id number] Age/Sex: 72 / M Date of Service: 11/07/22 Loc: ED Accession Number: [id number] ?? Procedure: XR ribs LT min 3V w CXR1V Ordering Provider: Jose Perera MD PROCEDURE:? XR RIBS LT MIN 3V W CXR1V ? INDICATIONS:? fall, pain ? TECHNIQUE:? Two views of the left ribs were acquired, along with a single view chest.? ? COMPARISON:? None. ? FINDINGS:? ? Surgical changes and devices:? None.? ? Bones and chest wall:? Minimally displaced left lateral 9th rib fracture.? There is a slight buckle deformity without lucent plane seen of the left 7th and six ribs. ? Lungs and pleura:? No pleural effusions or pneumothorax.? Lungs appear clear.? ? Mediastinum:? Mediastinal contours appear normal.? Heart size is normal.? ? IMPRESSION:? ? 1. Left lateral rib fractures, potentially acute and/or subacute. ? 2. The underlying lung appears normal.? ? ? Dictated by: Gayatri Galeana M.D. on 11/07/2022 at 17:49 ? ? Approved by: Gayatri Galeana M.D. on 11/07/2022 at 18:15?? [facility] Narrative Medical decision making narrative: 72-year-old male presents with concern for possible rib fractures on the left side after a fall today at home hitting a stool in his kitchen onto his ribs. X-ray today does show that Patient has a slight buckle deformity of 6th and 7th rib and also has a fracture with slight displacement of the 9th rib on the left side. 8 hours after the injury patient has no increased work of breathing respiratory distress vitals are within normal limits and no dizziness lightheadedness or signs of internal bleeding. He is on Eliquis. Did discuss this patient with the attending physician who feels that close return precautions are reasonable, and we will hold on advanced imaging today. Patient is treated today with pain medication and muscle relaxer, prescription for home. Close return precautions and follow-up plan discussed, all questions answered. Discharge Plan Departure Patient Disposition: Home Clinical Impression: Multiple fractures of ribs of left side Activity Restrictions/Additional Instructions: Thank you for letting us be part of your care today in the emergency department. You have a slightly displaced fracture of your 9th rib on the left side, and there are some subtle deformities noted on your 6 and 7th ribs on the left side which may represent fractures as well. I do think that you will need to continue with cyclobenzaprine as you already have a problem with muscle spasms and after this injury today I think this will be an additional problem, you already have a current prescription for hydrocodone, and I am not going to prescribe additional medication, I will prescribe a muscle relaxer, as well as lidocaine patches. You will need to follow up very closely with your primary care provider, I would like you to get Re seen next week and be rechecked to make sure you doing okay, of course if you have new or worsening symptoms such as dizziness, lightheadedness, shortness of breath or other symptoms of concern do not hesitate to seek re-evaluation return to the emergency department or call 911. We provided you with an incentive spirometer and some education on this stay in the emergency department, because you have rib fractures and pain with breathing it is very important that you use this regularly, as you are at risk of developing a pneumonia a few do not take deep breaths and feel your lungs frequently. There is no evidence of an emergent or life threatening illness at this time, but follow up with your doctor in 1-2 days is recommended nonetheless to continue to rule out serious underlying causes of your symptoms. Please call the office for an appointment. Please return to the Emergency Department for any worsening or persistent symptoms. Please take medications as directed. Prescriptions: New hydrocodone-acetaminophen 10-325 mg tablet 1 tab PO Q6-8H PRN (Reason: pain) 3 Days Qty: 14 0RF cyclobenzaprine 10 mg tablet 10 mg PO TID PRN (Reason: muscle spasm) 10 Days Qty: 30 0RF lidocaine 5 % ointment 1 applic topical TID PRN (Reason: pain) Qty: 30 1RF No Action losartan 50 mg tablet 50 mg PO DAILY cetirizine [Aller-Jennifer] 10 mg tablet 5 mg PO DAILY PRN (Reason: Allergies) furosemide 40 mg Tablet 40 mg PO DAILY paroxetine HCl 30 mg Tablet 30 mg PO DAILY montelukast 10 mg Tablet 10 mg PO DAILY metoprolol succinate 25 mg Tablet Extended Release 24 Hr 25 mg PO DAILY rosuvastatin 20 mg Tablet 20 mg PO DAILY Eliquis 5 mg Tablet 5 mg PO BID cyclobenzaprine 10 mg Tablet 10 mg PO Q8HR PRN (Reason: Spasms) Qty: 60 0RF docusate sodium 100 mg Capsule 100 mg PO BID PRN (Reason: constipation) Qty: 30 0RF hydromorphone [Dilaudid] 4 mg tablet 4 mg PO Q3H PRN (Reason: pain, severe) Qty: 42 0RF cephalexin 500 mg tablet 500 mg PO QID Qty: 20 0RF Referrals: Vick Virk MD [Primary Care Provider] - Stand Alone Forms: Patient Portal/API <Cait Angel DO - Last Filed: 11/08/22 04:40> Cosign ED Attending Carlos Attestation: I was immediately available in the department for consultation. Documentation has been reviewed.
[2022-11-07] MEDS: CYCLOBENZAPRINE 10 MG TABLET PO (20:22)
[2022-11-07] MEDS: HYDROCODONE/ACET 10/325 TABLET 1 TAB PO (20:23)
[2022-11-07 20:58] VITALS: BP 140/80; PULSE 64; RESP 20; O2SAT 96
== END 2022-11-07 21:00 | disposition home or self-care (01) ==
PROVIDERS: Emergency Provider Student in an Organized Health Care Education/Training Program; PCP Family Medicine
DX: S22.32XA Fracture of one rib, left side, initial encounter for closed fracture (principal); W18.30XA Fall on same level, unspecified, initial encounter
CPT/HCPCS: 71101; 99283

== ENCOUNTER → 2022-11-13 16:39 | Outpatient (CLI) | payer OTHER, SELFPAY ==
[2022-05-17 21:48] VITALS: BMI 42.9
--- NOTE | 2022-11-13 16:41 | DI.RAD.S_ITS ---
PROCEDURE: XR CHEST 2V INDICATIONS: pneumonia TECHNIQUE: 2 views of the chest were acquired. COMPARISON: [facility], CR, XR CHEST 2V, 02/08/2020, 11:39. FINDINGS: Surgical changes and devices: None. Lungs and pleura: Subtle hazy opacity involving left lower lung field is seen concerning for small left basilar infiltrate versus atelectasis. Right lung is clear. No pleural effusions or pneumothorax. Mediastinum: Tortuous thoracic aorta is seen. Heart size is enlarged, no pericardial effusion. Bones and chest wall: No suspicious bony abnormalities. Soft tissues appear unremarkable. IMPRESSION: Finding is concerning for small left basilar infiltrate versus atelectasis. No pleural effusion or pneumothorax. Dictated by: Kash Pennington M.D. on 11/13/2022 at 17:36 Approved by: Kash Pennington M.D. on 11/13/2022 at 17:37
== END ==
PROVIDERS: PCP Family Medicine; Referring Provider Family Medicine; Visit Provider Family Medicine
DX: J18.9 Pneumonia, unspecified organism (principal)
CPT/HCPCS: 71046

== ENCOUNTER 2022-11-15 17:34 | Emergency (ER) | payer OTHER, SELFPAY ==
[2022-05-17 21:48] VITALS: BMI 42.9
[2022-11-15] VITALS (13 sets, daily range): BP systolic 108–153; BP diastolic 61–72; PULSE 65–95; RESP 11–18; TEMP 36.4; O2SAT 94–98; BMI 41.0
[2022-11-15 18:25] LABS: Add Manual Diff / Slide Review NO; Basophils Absolute Auto 0 /uL (0-100); Basophils Percent Auto 0.6 % (0-2); Eosinophils Absolute Auto 500 /uL (0-450); Eosinophils Percent Auto 6.3 % (2-4); Hematocrit 38.2 % (41-53); Hemoglobin 13.1 g/dL (13.5-17.5); Lymphocytes Absolute Auto 1300 /uL (1100-4500); Lymphocytes Percent Auto 16.3 % (25-40); Mean Corpuscular HGB Conc 34.2 % (30-36); Mean Corpuscular Hemoglobin 30.2 PG (26-34); Mean Corpuscular Volume 88.5 fL (80-100); Monocytes Absolute Auto 900 /uL (0-900); Monocytes Percent Auto 11.9 % (3-14); Neutrophils Absolute Auto 5200 /uL (1500-7000); Neutrophils Percent Auto 64.9 % (50-75); Platelet Count 277 X10^3/uL (150-400); Red Blood Cell Count 4.32 X10^6/uL (4.5-5.9); Red Cell Distribution Width 13.6 % (11.6-14.8)
[2022-11-15 18:34] LABS: INR 1.7 (0.9-1.3); Prothrombin Time 19.1 SECONDS (10.1-12.7)
[2022-11-15 18:59] LABS: Lactate (Lactic Acid) 1.5 mmol/L (0.7-2.1)
[2022-11-15 19:00] LABS: Alanine Aminotransferase 24 IU/L (<50); Albumin 4.1 g/dL (3.5-5.0); Albumin Globulin Ratio 1.1 (1.0-2.8); Alkaline Phosphatase 100 U/L (38-126); Aspartate Aminotransferase 29 IU/L (17-59); BUN Creatinine Ratio 16.5 (6-22); Bilirubin Total 0.6 mg/dL (0.2-1.3); Blood Urea Nitrogen 16 mg/dL (9-20); Calcium 8.9 mg/dL (8.4-10.2); Carbon Dioxide 28 mmol/L (22-32); Chloride 96 mmol/L (98-107); Estimated Glomerular Filt Rate > 60 mL/min (>60); Globulin 3.7 g/dL (1.7-4.1); Glucose 106 mg/dL (80-110); HEMOLYSIS < 15 (0-50); Potassium 3.7 mmol/L (3.4-5.1); Sodium 133 mmol/L (137-145); Total Protein 7.8 g/dL (6.3-8.2)
[2022-11-15 19:11] LABS: NT-proBNP (BNP-Adult 18+) 837 pg/mL (<125); Troponin I 0.028 ng/mL (0.01-0.034)
--- NOTE | 2022-11-15 19:27 | DI.RAD.S_ITS ---
PROCEDURE: XR CHEST 1V INDICATIONS: Flu like symptoms TECHNIQUE: One view of the chest was acquired. COMPARISON: [facility], CR, XR CHEST 2V, 11/13/2022, 16:43. [facility], CR, XR CHEST 2V, 02/08/2020, 11:39. [facility], CR, XR CHEST 1 VIEW, 02/17/2020, 15:11. FINDINGS: Surgical changes and devices: None. Lungs and pleura: Low lung volumes with minimal interstitial prominence can be seen. No focal infiltrates are seen. No pneumothorax or pleural effusions are seen. A streak of likely atelectasis can be seen at the left lung base. Mediastinum: The cardiac contours are within normal limits. The aorta demonstrates calcification and tortuosity. Bones and chest wall: No suspicious bony lesions. Age-appropriate bony degenerative changes are seen. Overlying soft tissues appear unremarkable. IMPRESSION: Low lung volumes and minimal interstitial prominence can be seen. Please consider pulmonary edema, atypical/viral infiltrate and artifact. Dictated by: Jeffrey Edge M.D. on 11/15/2022 at 19:11 Approved by: Jeffrey Edge M.D. on 11/15/2022 at 19:12
[2022-11-15 20:31] LABS: Procalcitonin 0.08 ng/mL (<0.5)
[2022-11-15 21:09] LABS: COVID19 -Nasal RAPID Negative (Negative)
--- NOTE | 2022-11-15 22:39 | ED_ITS ---
HPI - SOB/Dyspnea General Chief Complaint: Shortness of Breath/Dyspnea Stated Complaint: Fall t-3, 3 broken ribs, Poss internal bleeding Time Seen by Provider: 11/15/22 19:15 History of Present Illness HPI Narrative: Patient is a 72-year-old male history of atrial fibrillation on Eliquis presenting today with persistent left-sided abdominal pain and rib pain after a fall 1 week ago. He was seen evaluated here on the after he slipped in the kitchen after his dog had pedal the on the floor. He landed on the left side hitting the edge of a stool. Did not hit his head or lose consciousness. He continues to have pain every time he breathes moves and coughs. He feels like it is moving into his abdomen. He denies any nausea or vomiting. He has some pain medicine at home foot was instructed by his PCP to come to the ED for further imaging. He is not dizzy lightheaded he is not passing out. Vitals are stable. Patient also reports that he has been taking about 3 days of Pepto- Bismol he has been having lack runny stools. He thought the pain was from stomach so he started Pepto-Bismol. Related Data Home Medications Medication Instructions Recorded Confirmed cetirizine 10 mg tablet (Aller-Jennifer) 5 mg PO DAILY PRN Allergies 02/24/19 07/12/22 losartan 50 mg tablet 50 mg PO DAILY 02/24/19 07/12/22 apixaban 5 mg tablet (Eliquis) 5 mg PO BID 05/02/22 07/12/22 furosemide 40 mg tablet 40 mg PO DAILY 05/02/22 07/12/22 metoprolol succinate 25 mg 25 mg PO DAILY 05/02/22 07/12/22 tablet,extended release 24 hr montelukast 10 mg tablet 10 mg PO DAILY 05/02/22 07/12/22 paroxetine HCl 30 mg tablet 30 mg PO DAILY 05/02/22 07/12/22 rosuvastatin 20 mg tablet 20 mg PO DAILY 05/02/22 07/12/22 Previous Rx's Medication Instructions Recorded cyclobenzaprine 10 mg tablet 10 mg PO Q8HR PRN Spasms #60 tabs 05/20/22 docusate sodium 100 mg capsule 100 mg PO BID PRN constipation #30 05/20/22 caps hydromorphone 4 mg tablet 4 mg PO Q3H PRN pain, severe #42 05/20/22 (Dilaudid) tabs cephalexin 500 mg tablet 500 mg PO QID #20 tabs 07/12/22 cyclobenzaprine 10 mg tablet 10 mg PO TID PRN muscle spasm 10 11/07/22 days #30 tabs lidocaine 5 % topical ointment 1 applic topical TID PRN pain #30 11/07/22 grams Allergies Allergy/AdvReac Type Severity Reaction Status Date / Time No Known Drug Allergies Allergy Verified 11/07/22 17:30 Review of Systems Review of Systems ROS Unobtainable: All systems reviewed & are unremarkable except as noted in HPI and below Patient History Medical History Anxiety Arrhythmia Arthritis CAD (coronary artery disease) Carotid artery occlusion Crushing injury of right foot (~03/2022) DVT (deep venous thrombosis) (04/26/22) Easy bruisability HLD (hyperlipidemia) Hypertension Left groin pain Surgical History History of ankle surgery History of photorefractive keratectomy (PRK) Hx of tonsillectomy Hx of total knee arthroplasty Hx of transurethral resection of prostate (01/12/20) S/P foot surgery, right (05/17/22) Family History Father Hypertension Cancer Diabetes mellitus Social History marital status: household members: spouse Smoking Status: Never smoker alcohol intake: former substance use type: does not use Smoking Status: Never smoker alcohol intake frequency: 0-2 drinks per day Substance Use Type: does not use Exam Initial Vital Signs Initial Vital Signs: Vital Signs Temperature 97.6 F 11/15/22 17:50 Pulse Rate 65 11/15/22 17:50 Respiratory Rate 16 11/15/22 17:50 Blood Pressure 124/61 11/15/22 17:50 Pulse Oximetry 95 11/15/22 17:50 Oxygen Delivery Method Room Air 11/15/22 17:50 GENERAL: Alert pleasant 72-year-old male appears uncomfortable and in no acute distress. HEENT: Head atraumatic,EOMI, pupils reactive, face symmetric, moist mucous membranes CARDIOVASCULAR: Regular rate and rhythm without murmurs, rubs or gallops. RESPIRATORY: Breath sounds equal bilaterally, no wheezes rales or rhonchi. ABDOMEN: Soft, tender left upper quadrant who guarding no rebound no contusion EXTREMITIES: Normal range of motion, no clubbing or edema. Neurovascularly intact NEUROLOGICAL: Alert and oriented x4.Normal gait and speech. SKIN: Warm, dry, no laceration, no petechiae, no rashes or lesions. Course Orders Ordered: ED Orders 11/15/22 22:46 CT chest abd pel w con Stat 11/15/22 23:44 Urine Microscopic Stat Vital Signs Vital signs: Vital Signs - 8 hr 11/15/22 22:30 11/15/22 22:30 11/15/22 23:08 Pulse Rate 66 95 H Respiratory Rate 11 L Blood Pressure 123/66 Pulse Oximetry 97 94 11/15/22 23:30 11/15/22 23:56 11/15/22 23:56 Pulse Rate 80 Respiratory Rate 14 Blood Pressure 118/66 Pulse Oximetry 96 95 11/16/22 00:00 11/16/22 00:01 11/16/22 00:01 Pulse Rate 79 82 Respiratory Rate Blood Pressure 112/55 L Pulse Oximetry 94 94 MDM - SOB/Dyspnea Lab Data 11/15/22 18:11 11/15/22 18:11 Labs: Lab Results 11/15/22 11/15/22 11/15/22 Range/Units 18:11 18:11 18:11 WBC 8.0 (4.5-11.0) X10^3/uL RBC 4.32 L (4.5-5.9) X10^6/uL Hgb 13.1 L (13.5-17.5) g/dL Hct 38.2 L (41-53) % MCV 88.5 (80-100) fL MCH 30.2 (26-34) PG MCHC 34.2 (30-36) % RDW 13.6 (11.6-14.8) % Plt Count 277 (150-400) X10^3/uL Neut % (Auto) 64.9 (50-75) % Lymph % (Auto) 16.3 L (25-40) % [place] % (Auto) 11.9 (3-14) % Eos % (Auto) 6.3 H (2-4) % Baso % (Auto) 0.6 (0-2) % Neut # (Auto) 5200 (8263-7344) /uL Lymph # (Auto) 1300 (5311-3584) /uL [place] # (Auto) 900 (0-900) /uL Eos # (Auto) 500 H (0-450) /uL Baso # (Auto) 0 (0-100) /uL PT 19.1 H (10.1-12.7) SECONDS INR 1.7 H (0.9-1.3) Sodium 133 L (137-145) mmol/L Potassium 3.7 (3.4-5.1) mmol/L Chloride 96 L (98-107) mmol/L Carbon Dioxide 28 (22-32) mmol/L BUN 16 (9-20) mg/dL Creatinine 0.97 (0.66-1.25) mg/dL Estimated GFR > 60 (>60) mL/min BUN/Creatinine Ratio 16.5 (6-22) Glucose 106 (80-110) mg/dL Lactate (0.7-2.1) mmol/L Calcium 8.9 (8.4-10.2) mg/dL Total Bilirubin 0.6 (0.2-1.3) mg/dL AST 29 (17-59) IU/L ALT 24 (<50) IU/L Alkaline Phosphatase 100 (38-126) U/L Troponin I 0.028 (0.01-0.034) ng/mL NT-Pro-B Natriuret Pep 837 H (<125) pg/mL Total Protein 7.8 (6.3-8.2) g/dL Albumin 4.1 (3.5-5.0) g/dL Globulin 3.7 (1.7-4.1) g/dL Albumin/Globulin Ratio 1.1 (1.0-2.8) Procalcitonin (<0.5) ng/mL Urine RBC (0-5/HPF) Urine WBC (0-5/HPF) Ur Squamous Epith Cells (0-5/HPF) Urine Bacteria (None) Ur Culture Indicated? SARS-CoV-2 (PCR) (Negative) 05/19/23 05/19/23 05/19/23 Range/Units 18:11 18:11 20:48 WBC (4.5-11.0) X10^3/uL RBC (4.5-5.9) X10^6/uL Hgb (13.5-17.5) g/dL Hct (41-53) % MCV (80-100) fL MCH (26-34) PG MCHC (30-36) % RDW (11.6-14.8) % Plt Count (150-400) X10^3/uL Neut % (Auto) (50-75) % Lymph % (Auto) (25-40) % [place] % (Auto) (3-14) % Eos % (Auto) (2-4) % Baso % (Auto) (0-2) % Neut # (Auto) (8410-1568) /uL Lymph # (Auto) (7088-5443) /uL [place] # (Auto) (0-900) /uL Eos # (Auto) (0-450) /uL Baso # (Auto) (0-100) /uL PT (10.1-12.7) SECONDS INR (0.9-1.3) Sodium (137-145) mmol/L Potassium (3.4-5.1) mmol/L Chloride (98-107) mmol/L Carbon Dioxide (22-32) mmol/L BUN (9-20) mg/dL Creatinine (0.66-1.25) mg/dL Estimated GFR (>60) mL/min BUN/Creatinine Ratio (6-22) Glucose (80-110) mg/dL Lactate 1.5 (0.7-2.1) mmol/L Calcium (8.4-10.2) mg/dL Total Bilirubin (0.2-1.3) mg/dL AST (17-59) IU/L ALT (<50) IU/L Alkaline Phosphatase (38-126) U/L Troponin I (0.01-0.034) ng/mL NT-Pro-B Natriuret Pep (<125) pg/mL Total Protein (6.3-8.2) g/dL Albumin (3.5-5.0) g/dL Globulin (1.7-4.1) g/dL Albumin/Globulin Ratio (1.0-2.8) Procalcitonin 0.08 (<0.5) ng/mL Urine RBC (0-5/HPF) Urine WBC (0-5/HPF) Ur Squamous Epith Cells (0-5/HPF) Urine Bacteria (None) Ur Culture Indicated? SARS-CoV-2 (PCR) Negative (Negative) 11/15/22 Range/Units 23:44 WBC (4.5-11.0) X10^3/uL RBC (4.5-5.9) X10^6/uL Hgb (13.5-17.5) g/dL Hct (41-53) % MCV (80-100) fL MCH (26-34) PG MCHC (30-36) % RDW (11.6-14.8) % Plt Count (150-400) X10^3/uL Neut % (Auto) (50-75) % Lymph % (Auto) (25-40) % [place] % (Auto) (3-14) % Eos % (Auto) (2-4) % Baso % (Auto) (0-2) % Neut # (Auto) (0656-7489) /uL Lymph # (Auto) (0568-4484) /uL [place] # (Auto) (0-900) /uL Eos # (Auto) (0-450) /uL Baso # (Auto) (0-100) /uL PT (10.1-12.7) SECONDS INR (0.9-1.3) Sodium (137-145) mmol/L Potassium (3.4-5.1) mmol/L Chloride (98-107) mmol/L Carbon Dioxide (22-32) mmol/L BUN (9-20) mg/dL Creatinine (0.66-1.25) mg/dL Estimated GFR (>60) mL/min BUN/Creatinine Ratio (6-22) Glucose (80-110) mg/dL Lactate (0.7-2.1) mmol/L Calcium (8.4-10.2) mg/dL Total Bilirubin (0.2-1.3) mg/dL AST (17-59) IU/L ALT (<50) IU/L Alkaline Phosphatase (38-126) U/L Troponin I (0.01-0.034) ng/mL NT-Pro-B Natriuret Pep (<125) pg/mL Total Protein (6.3-8.2) g/dL Albumin (3.5-5.0) g/dL Globulin (1.7-4.1) g/dL Albumin/Globulin Ratio (1.0-2.8) Procalcitonin (<0.5) ng/mL Urine RBC 0-1/hpf (0-5/HPF) Urine WBC 1-5/hpf (0-5/HPF) Ur Squamous Epith Cells 10-30 /hpf H D (0-5/HPF) Urine Bacteria None seen (None) Ur Culture Indicated? Cult not indicated SARS-CoV-2 (PCR) (Negative) Urine Dip Bedside Urine Glucose Negative Bedside Urine Bilirubin - Negative Bedside Urine Ketone - Negative Urine Specific [place] 1.005 Bedside Urine Occult Blood +/- Bedside Urine pH 5.5 Bedside Urine Protein - Negative Bedside Urine Urobilinogen 0.2 mg/dl Bedside Urine Nitrite - Negative Bedside Urine Leukocytes - Negative Esterase Imaging Data CT scan - chest: Radiologist's Impression: PROCEDURE:? CT CHEST ABD PEL W CON ? INDICATIONS:? fall 1 week ago on eliquis 8th rib fracture ? TECHNIQUE:? After the administration of intravenous contrast, 5 mm thick sections acquired from the lung apices to the symphysis.? 2.5 mm thick coronal and sagittal reformats were acquired. ?Additional 7 mm thick coronal maximum intensity projection (MIP) reformats acquired through the lungs.? Optional 10-minute delayed imaging may be performed from the kidneys to the bladder.? For radiation dose reduction, the following was used:? automated exposure control, adjustment of mA and/or kV according to patient size.? ? COMPARISON:? [facility], CT, CT ABDOMEN PELVIS WO CON, 02/16/2019, 14:03.? [facility], CR, XR RIBS LT MIN 3V W CXR1V, 11/07/2022, 17:28.? [facility], CR, XR CHEST 2V, 11/13/2022, 16:43.? [facility], CR, XR CHEST 1V, 11/15/2022, 19:58. ? FINDINGS:? Image quality:? Excellent.? ? CHEST:? Lungs:? There is a small left-sided pleural effusion, which measures less than 10 Hounsfield units..? No pneumothorax is seen.? No pulmonary contusions or lacerations.? No acute airspace opacities. Central and peripheral airways appear patent and normal in caliber.? ? Mediastinum:? No mediastinal hematomas.? Heart size is normal.? No pericardial effusion.? Thoracic aorta and pulmonary arteries demonstrate normal size and enhancement.? No findings pulmonary embolism can be seen.? No mediastinal or hilar adenopathy.? Esophagus is normal in caliber.? There is a small hiatal hernia.? ? Chest wall:? There are fractures of the left posterior 8th and 9th ribs.? Of interest, each of these ribs demonstrates 2 separate fractures. ? No subcutaneous emphysema.? No axillary or supraclavicular adenopathy.? Thyroid gland demonstrates no significant abnormality.? ? ? ABDOMEN:? Solid organs:? Liver is normal in size and enhancement, without lacerations.? Diffuse fatty liver infiltration is noted.? Gallbladder wall is not thickened.? Biliary system is non-dilated.? Pancreas enhances normally, without transection.? Spleen is normal in size and enhancement, without lacerations. Incidental note is made of an accessory splenule along the hilum of the primary spleen.? No adrenal hematomas.? Both kidneys enhance normally, without hydronephrosis or lacerations.? ? Peritoneum and bowel:? No free fluid or air.? Unenhanced bowel loops demonstrate normal wall thickness and caliber.? Liquid stool can be seen within the colon, inclu ding distally. ? Nodes and vessels:? No retroperitoneal or mesenteric adenopathy.? Aorta and inferior vena cava are normal in size and enhancement.? ? Miscellaneous:? There is a moderate fat containing periumbilical hernia. ? ? PELVIS:? Genitourinary:? Bladder wall thickness is normal.? A TURP defect is seen. ? Miscellaneous:? No inguinal adenopathy.? Bilateral fat containing inguinal hernias are seen, left larger than right. ? Bones:? Pelvic ring and hip joints appear intact.? No vertebral compression fractures.? Age-appropriate bony degenerative changes are seen, including involving the lumb ar spine and the hips. ? IMPRESSION:? Fractures of the left posterior 8th and 9th ribs. ? No associated pneumothorax is seen. ? There is a small left-sided pleural effusion, which demonstrates low density is consistent with simple fluid. ? Liquid stool can be seen within the colon, including distally.? Please correlate with clinical diarrhea. ? ? ? Additional findings:? Small hiatal hernia Fatty liver infiltration Accessory splenule There is a moderate fat containing periumbilical hernia. Prior TURP Bilateral fat containing inguinal hernias ? Dictated by: Jeffrey Edge M.D. on 11/15/2022 at 22:44 MDM Narrative Medical decision making narrative: Patient is 72-year-old male who has a known left-sided rib fracture presenting today with increasing abdominal pain and pain. He is on Eliquis. Concerned that there may be internal bleeding. Hemodynamically stable. Not significantly anemic. He is mildly tender in his left upper quadrant. CT chest abdomen pelvis today do not show any intra abdominal abnormality. CT chest pelvis continues to show left posterior 8th and 9th ribs with small left pleural effusion. No splenic laceration. He is pain medication at home he also drove himself he is not requiring pain meds here. Hemoglobin has actually gone up rather than down. He also reports having black stool which started after taking Pepto-Bismol. I suspect that these 2 things are related. I do not suspect a GI bleed. Sodium is slightly low at 130 we negative troponin no ANISH. At this time I suspect patient's pain is still secondary to rib fractures. He will get pain meds from his PCP. Discharge Plan Departure Patient Disposition: Home Clinical Impression: Closed rib fracture Instructions: Rib Fracture Activity Restrictions/Additional Instructions: *You have been diagnosed with rib fractures 8 and 9 *What to do: At this time you are still having on your fractures. This can last for couple of weeks but it should start to get better. I recommend splinting using your hand or pillow if possible. Continue with the incentive spirometer as previously directed. Stop taking Pepto-Bismol *Continue to take medications as directed Continue pain medication as directed *Follow up with your primary care provider in 2-3 days or call [phone] *Return to ER if you should have increasing pain shortness of breath dizziness lightheadedness [or] any new, worsening or concerning symptoms Prescriptions: No Action losartan 50 mg tablet 50 mg PO DAILY cetirizine [Aller-Jennifer] 10 mg tablet 5 mg PO DAILY PRN (Reason: Allergies) cyclobenzaprine 10 mg tablet 10 mg PO TID PRN (Reason: muscle spasm) 10 Days Qty: 30 0RF lidocaine 5 % ointment 1 applic topical TID PRN (Reason: pain) Qty: 30 1RF furosemide 40 mg Tablet 40 mg PO DAILY paroxetine HCl 30 mg Tablet 30 mg PO DAILY montelukast 10 mg Tablet 10 mg PO DAILY metoprolol succinate 25 mg Tablet Extended Release 24 Hr 25 mg PO DAILY rosuvastatin 20 mg Tablet 20 mg PO DAILY Eliquis 5 mg Tablet 5 mg PO BID cyclobenzaprine 10 mg Tablet 10 mg PO Q8HR PRN (Reason: Spasms) Qty: 60 0RF docusate sodium 100 mg Capsule 100 mg PO BID PRN (Reason: constipation) Qty: 30 0RF hydromorphone [Dilaudid] 4 mg tablet 4 mg PO Q3H PRN (Reason: pain, severe) Qty: 42 0RF cephalexin 500 mg tablet 500 mg PO QID Qty: 20 0RF Referrals: Vick Virk MD [Primary Care Provider] - Stand Alone Forms: Patient Portal/API
--- NOTE | 2022-11-15 22:46 | DI.CT.S_ITS ---
PROCEDURE: CT CHEST ABD PEL W CON INDICATIONS: fall 1 week ago on tacoquis 8th rib fracture TECHNIQUE: After the administration of intravenous contrast, 5 mm thick sections acquired from the lung apices to the symphysis. 2.5 mm thick coronal and sagittal reformats were acquired. Additional 7 mm thick coronal maximum intensity projection (MIP) reformats acquired through the lungs. Optional 10-minute delayed imaging may be performed from the kidneys to the bladder. For radiation dose reduction, the following was used: automated exposure control, adjustment of mA and/or kV according to patient size. COMPARISON: [facility], CT, CT ABDOMEN PELVIS WO CON, 02/16/2019, 14:03. [facility], CR, XR RIBS LT MIN 3V W CXR1V, 11/07/2022, 17:28. [facility], CR, XR CHEST 2V, 11/13/2022, 16:43. [facility], CR, XR CHEST 1V, 11/15/2022, 19:58. FINDINGS: Image quality: Excellent. CHEST: Lungs: There is a small left-sided pleural effusion, which measures less than 10 Hounsfield units.. No pneumothorax is seen. No pulmonary contusions or lacerations. No acute airspace opacities. Central and peripheral airways appear patent and normal in caliber. Mediastinum: No mediastinal hematomas. Heart size is normal. No pericardial effusion. Thoracic aorta and pulmonary arteries demonstrate normal size and enhancement. No findings pulmonary embolism can be seen. No mediastinal or hilar adenopathy. Esophagus is normal in caliber. There is a small hiatal hernia. Chest wall: There are fractures of the left posterior 8th and 9th ribs. Of interest, each of these ribs demonstrates 2 separate fractures. No subcutaneous emphysema. No axillary or supraclavicular adenopathy. Thyroid gland demonstrates no significant abnormality. ABDOMEN: Solid organs: Liver is normal in size and enhancement, without lacerations. Diffuse fatty liver infiltration is noted. Gallbladder wall is not thickened. Biliary system is non-dilated. Pancreas enhances normally, without transection. Spleen is normal in size and enhancement, without lacerations. Incidental note is made of an accessory splenule along the hilum of the primary spleen. No adrenal hematomas. Both kidneys enhance normally, without hydronephrosis or lacerations. Peritoneum and bowel: No free fluid or air. Unenhanced bowel loops demonstrate normal wall thickness and caliber. Liquid stool can be seen within the colon, including distally. Nodes and vessels: No retroperitoneal or mesenteric adenopathy. Aorta and inferior vena cava are normal in size and enhancement. Miscellaneous: There is a moderate fat containing periumbilical hernia. PELVIS: Genitourinary: Bladder wall thickness is normal. A TURP defect is seen. Miscellaneous: No inguinal adenopathy. Bilateral fat containing inguinal hernias are seen, left larger than right. Bones: Pelvic ring and hip joints appear intact. No vertebral compression fractures. Age-appropriate bony degenerative changes are seen, including involving the lumbar spine and the hips. IMPRESSION: Fractures of the left posterior 8th and 9th ribs. No associated pneumothorax is seen. There is a small left-sided pleural effusion, which demonstrates low density is consistent with simple fluid. Liquid stool can be seen within the colon, including distally. Please correlate with clinical diarrhea. Additional findings: Small hiatal hernia Fatty liver infiltration Accessory splenule There is a moderate fat containing periumbilical hernia. Prior TURP Bilateral fat containing inguinal hernias Dictated by: Jeffrey Edge M.D. on 11/15/2022 at 22:44 Approved by: Jeffrey Edge M.D. on 11/15/2022 at 22:51
[2022-11-16] VITALS: PULSE 79; O2SAT 94
[2022-11-16 00:01] VITALS: BP 112/55; PULSE 82; O2SAT 94
[2022-11-16 00:08] LABS: Bacteria Urine None Seen; Culture Indicated Urine Cult Not Indicated; RBC Urine 0-1/HPF (0-5/HPF); Squamous Epithelial Cell Urine 10-30 /HPF (0-5/HPF); WBC Urine 1-5/HPF (0-5/HPF)
== END 2022-11-16 00:18 | disposition home or self-care (01) ==
PROVIDERS: Emergency Medicine; Student in an Organized Health Care Education/Training Program; Emergency Provider Emergency Medicine; PCP Family Medicine
DX: S22.32XA Fracture of one rib, left side, initial encounter for closed fracture (principal); R06.02 Shortness of breath; Z79.01 Long term (current) use of anticoagulants; Z20.822 Contact with and (suspected) exposure to COVID-19; W01.0XXA Fall on same level from slipping, tripping and stumbling without subsequent striking against object, initial encounter
CPT/HCPCS: 36415; 71045; 71260; 74177; 80053; 81003; 81015; 83605; 83880; 84145; 84484; 85025; 85610; 87635; 99284; C9803; Q9967

== ENCOUNTER → 2023-01-06 08:46 | Outpatient (CLI) | payer OTHER, SELFPAY ==
[2022-05-17 21:48] VITALS: BMI 42.9
--- NOTE | 2023-01-06 | DI.US.S_ITS ---
PROCEDURE: US [facility] VENOUS LOW EXTREM RT INDICATIONS: F/U DVT TECHNIQUE: Real-time imaging, as well as color and pulse Doppler interrogation, were performed of the lower extremity deep veins from the inguinal ligament to the popliteal fossa. COMPARISON: [facility], , [facility] VENOUS LOW EXTREM RT, 04/25/2022, 11:57. FINDINGS: The common femoral, femoral and popliteal veins are normally compressible, and free of intraluminal thrombus. Color and pulse Doppler demonstrate normal phasic intraluminal flow. There is normal augmentation response to distal compression maneuver. IMPRESSION: No deep vein thrombosis of the right lower extremity. Dictated by: Roxie Duke M.D. on 01/06/2023 at 10:46 Approved by: Roxie Duke M.D. on 01/06/2023 at 10:47
== END ==
PROVIDERS: PCP Family Medicine; Referring Provider Family Medicine; Visit Provider Family Medicine
DX: I82.511 Chronic embolism and thrombosis of right femoral vein (principal)
CPT/HCPCS: 93971

== ENCOUNTER → 2023-08-08 10:37 | Outpatient (CLI) | payer OTHER, SELFPAY ==
[2022-05-17 21:48] VITALS: BMI 42.9
--- NOTE | 2023-08-08 10:41 | DI.US.S_ITS ---
PROCEDURE: US PERIP VENOUS LOW EXTREM RT INDICATIONS: ACUTE PAIN RLE/HX DVT TECHNIQUE: Real-time imaging, as well as color and pulse Doppler interrogation, were performed of the lower extremity deep veins from the inguinal ligament to the popliteal fossa, with documentation of the visualized calf veins. COMPARISON: [facility], [facility] VENOUS LOW EXTREM RT, 01/06/2023, 8:51. FINDINGS: The common femoral, femoral, popliteal, and the visualized calf veins are normally compressible, and free of intraluminal thrombus. Color and pulse Doppler demonstrate normal phasic intraluminal flow. There is normal augmentation response to distal compression maneuver. This study is limited by body habitus. IMPRESSION: No findings of lower extremity deep venous thrombosis. Dictated by: Jeffrey Edge M.D. on 08/08/2023 at 17:13 Approved by: Jeffrey dEge M.D. on 08/08/2023 at 17:13
== END ==
PROVIDERS: PCP Family Medicine; Referring Provider Family Medicine; Visit Provider Family Medicine
DX: M79.604 Pain in right leg (principal); Z86.718 Personal history of other venous thrombosis and embolism
CPT/HCPCS: 93971

== ENCOUNTER → 2023-09-16 12:44 | Outpatient (CLI) | payer OTHER, SELFPAY ==
[2022-05-17 21:48] VITALS: BMI 42.9
--- NOTE | 2023-09-16 12:46 | DI.RAD.S_ITS ---
PROCEDURE: XR HIP W PEL IF DONE RT 2V INDICATIONS: RIGHT HIPE PAIN TECHNIQUE: AP pelvis with lateral view(s) of the right hip(s). COMPARISON: None. FINDINGS: Bones: No fractures or dislocations. Pelvic ring appears intact. No suspicious bony lesions. Moderate-severe right and moderate left bilateral hip degenerative change with moderate lower lumbar spondylosis. There is loss of normal sphericity of the superolateral right femoral head neck junction which may be seen with femoral acetabular impingement. Soft tissues: The visualized bowel gas pattern is normal. No suspicious soft tissue calcifications. IMPRESSION: No acute bony abnormality. Moderate-severe right and moderate left bilateral hip degenerative changes with moderate lower lumbar spondylosis. 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 Dictated by: Cornelio Dominique M.D. on 09/16/2023 at 15:40 Approved by: Cornelio Dominique M.D. on 09/16/2023 at 15:42
== END ==
PROVIDERS: PCP Family Medicine; Referring Provider Family Medicine; Visit Provider Family Medicine
DX: M25.551 Pain in right hip (principal); G89.29 Other chronic pain; M47.816 Spondylosis without myelopathy or radiculopathy, lumbar region
CPT/HCPCS: 73502

== ENCOUNTER → 2024-05-26 10:57 | Outpatient (ROUT) | payer OTHER, SELFPAY ==
[2022-05-17 21:48] VITALS: BMI 42.9
[2024-05-26 11:12] LABS: INR 1.1 (0.9-1.3); Prothrombin Time 12.7 SECONDS (9.4-12.5)
== END ==
PROVIDERS: PCP Family Medicine; Visit Provider Family Medicine
DX: T14.8XXA Other injury of unspecified body region, initial encounter (principal)
CPT/HCPCS: 85610

== ENCOUNTER → 2024-10-12 07:02 | Outpatient (CLI) | payer OTHER, SELFPAY ==
[2022-05-17 21:48] VITALS: BMI 42.9
--- NOTE | 2024-10-14 16:46 | DI.NM.S_ITS ---
DATE OF SERVICE: 10/12/2024 INTRAVENOUS LEXISCAN PERFUSION STUDY INDICATIONS: Diastolic heart failure, obesity, hypertension, hyperlipidemia, PVCs, carotid artery disease. RADIOPHARMACEUTICAL: 25.1 millicurie technetium-99m Myoview IV was injected at stress and 26 millicurie technetium-99m Myoview IV was injected at rest. CARDIAC STRESS: The patient underwent IV Lexiscan perfusion study under the supervision of an attending staff. The patient remained hemodynamically stable. Resting blood pressure 132/90. Baseline rhythm sinus with intermittent PVCs. During stress no new convincing ischemic changes. The patient continued to have isolated PVCs without any ventricular tachycardia. Also has baseline first-degree AV block and poor R-wave progression. RAW DATA: There is increased subdiaphragmatic activity. Diaphragmatic shadow seen as well. The patient's weight is 300 pounds. The stress LV ejection fraction 63% without any obvious wall motion abnormalities. Resting end-diastolic volume 117 mL. TID ratio 1.06, which is within normal limits. Lung/heart ratio 0.38, which is within normal limits. MYOCARDIAL PERFUSION SCAN: There were no stress prone images. Stress supine and resting supine images were compared to each other. Stress supine and resting supine images did not reveal any significant perfusion defect. CONCLUSION: I will call this study likely a normal myocardial perfusion study without any significant perfusion defect. No reversible ischemia. The stress LV ejection fraction 63%. No chest pain. No ischemic EKG changes. Baseline isolated PVCs which persisted during stress. Overall, low-risk myocardial perfusion scan. Devonte Obrien - CORIE/gualberto/KAVYA doc#: [id number]/job#: [id number] dd: 10/14/2024 16:29:00 dt: 10/14/2024 16:34:00 DICTATING MD/COPIES TO: Sabrina Rowe MD COPIES MNE: DEEP;
== END ==
PROVIDERS: PCP Family Medicine; Referring Provider Internal Medicine Cardiovascular Disease; Visit Provider Internal Medicine Cardiovascular Disease
DX: I11.0 Hypertensive heart disease with heart failure (principal); Z01.818 Encounter for other preprocedural examination; I50.32 Chronic diastolic (congestive) heart failure; I49.3 Ventricular premature depolarization; E78.5 Hyperlipidemia, unspecified; I65.29 Occlusion and stenosis of unspecified carotid artery; E66.01 Morbid (severe) obesity due to excess calories; Z68.42 Body mass index [BMI] 45.0-49.9, adult
CPT/HCPCS: 78452; 93017; A9502; J2785

== ENCOUNTER → 2024-11-16 08:16 | Outpatient (CLI) | payer OTHER, SELFPAY ==
[2022-05-17 21:48] VITALS: BMI 42.9
[2024-11-16 09:33] LABS: Cholesterol 157 mg/dL (140-199); HDL Cholesterol 54 mg/dL (40-60); LDL Cholesterol Calculated 82 mg/dL (<100); Triglycerides 107 mg/dL (35-150)
== END ==
PROVIDERS: PCP Family Medicine; Referring Provider Internal Medicine Cardiovascular Disease; Visit Provider Internal Medicine Cardiovascular Disease
DX: E78.2 Mixed hyperlipidemia (principal)
CPT/HCPCS: 36415; 80061

== ENCOUNTER 2025-01-04 16:33 | Emergency (ER) | payer OTHER, SELFPAY ==
[2022-05-17 21:48] VITALS: BMI 42.9
[2025-01-04 16:57] VITALS: BP 136/82; PULSE 77; RESP 18; TEMP 36.8; O2SAT 96; BMI 43.8
[2025-01-04 18:03] LABS: Add Manual Diff / Slide Review NO; Hematocrit 46.8 % (41-53); Hemoglobin 15.9 g/dL (13.5-17.5); Lymphocytes Absolute Auto 1100 /uL (1100-4500); Mean Corpuscular HGB Conc 34.1 % (30-36); Mean Corpuscular Hemoglobin 31.4 PG (26-34); Mean Corpuscular Volume 92.2 fL (80-100); Platelet Count 266 X10^3/uL (150-400)
[2025-01-04 18:16] LABS: Alanine Aminotransferase 72 IU/L (<50); Albumin 4.3 g/dL (3.5-5.0); Albumin Globulin Ratio 1.3 (1.0-2.8); Alkaline Phosphatase 95 U/L (38-126); Blood Urea Nitrogen 15 mg/dL (9-20); Calcium 9.2 mg/dL (8.4-10.2); Carbon Dioxide 32 mmol/L (22-32); Chloride 97 mmol/L (98-107); Estimated Glomerular Filt Rate > 60 mL/min (>60); Globulin 3.3 g/dL (1.7-4.1); Glucose 116 mg/dL (70-99); HEMOLYSIS < 15 (0-50); Lipase 95 U/L (23-300); Potassium 3.2 mmol/L (3.4-5.1); Sodium 136 mmol/L (137-145); Total Protein 7.6 g/dL (6.3-8.2)
[2025-01-04 19:50] VITALS: BP 145/84; PULSE 77; TEMP 37; O2SAT 98
--- NOTE | 2025-01-04 21:49 | ED.ABDPAIN ---
HPI - Abdominal Pain General Chief Complaint: Abdominal Pain Stated Complaint: Very dehydrated, stomach pain, dry heaving Time Seen by Provider: 01/04/25 21:49 History of Present Illness HPI narrative: Patient is a 74-year-old male with a past medical history of gastric bypass performed on 12/27/[address] [facility] ([place], [place]) on Lovenox, presenting from home for evaluation of nausea vomiting, states that he tried to be and Zofran but symptoms persisted. He states that he did contact his surgeon's office and was instructed come into the ED for further evaluation treatment. Related Data Home Medications ?Medication ?Instructions ?Recorded ?Confirmed cetirizine 10 mg tablet (Aller-Jennifer) 5 mg PO DAILY PRN Allergies 02/24/19 07/12/22 losartan 50 mg tablet 50 mg PO DAILY 02/24/19 07/12/22 apixaban 5 mg tablet (Eliquis) 5 mg PO BID 05/02/22 07/12/22 furosemide 40 mg tablet 40 mg PO DAILY 05/02/22 07/12/22 metoprolol succinate 25 mg 25 mg PO DAILY 05/02/22 07/12/22 tablet,extended release 24 hr montelukast 10 mg tablet 10 mg PO DAILY 05/02/22 07/12/22 paroxetine HCl 30 mg tablet 30 mg PO DAILY 05/02/22 07/12/22 rosuvastatin 20 mg tablet 20 mg PO DAILY 05/02/22 07/12/22 Previous Rx's ?Medication ?Instructions ?Recorded cyclobenzaprine 10 mg tablet 10 mg PO Q8HR PRN Spasms #60 tabs 05/20/22 docusate sodium 100 mg capsule 100 mg PO BID PRN constipation #30 05/20/22 caps hydromorphone 4 mg tablet 4 mg PO Q3H PRN pain, severe #42 05/20/22 (Dilaudid) tabs cephalexin 500 mg tablet 500 mg PO QID #20 tabs 07/12/22 lidocaine 5 % topical ointment 1 applic topical TID PRN pain #30 11/07/22 grams Allergies Allergy/AdvReac Type Severity Reaction Status Date / Time No Known Drug Allergies Allergy Verified 11/07/22 17:30 Review of Systems Review of Systems Narrative: General: Denies fever, chills, weight loss HEENT: Denies headache, eye drainage, eye irritation, head trauma, sore throat, voice change Cardiovascular: Denies any chest pain, palpitations, tachycardia Respiratory: Denies any shortness of breath, cough, wheeze, stridor GI/: Positive abdominal pain distention, nausea, denies vomiting, diarrhea, bright red blood per rectum, melanotic stools, urinary frequency, urinary retention, dysuria, hematuria MSK: Denies any joint pain, muscle pains, swelling Skin: Denies any rashes, lesions, discoloration Neuro: Denies any headache, lightheadedness, dizziness, fainting, weakness Psych: Denies SI/HI Patient History Medical History Anxiety Arrhythmia Arthritis CAD (coronary artery disease) Carotid artery occlusion Crushing injury of right foot (~03/2022) DVT (deep venous thrombosis) (04/26/22) Easy bruisability HLD (hyperlipidemia) Hypertension Left groin pain Surgical History History of ankle surgery History of photorefractive keratectomy (PRK) Hx of tonsillectomy Hx of total knee arthroplasty Hx of transurethral resection of prostate (01/12/20) S/P foot surgery, right (05/17/22) Family History Father Hypertension Cancer Diabetes mellitus Social History marital status: household members: spouse Smoking Status: Never smoker alcohol intake: former substance use type: does not use Smoking Status: Never smoker alcohol intake frequency: 0-2 drinks per day Exam Narrative Exam Narrative: General: Cooperative, well-developed, not in acute distress HEENT: Normocephalic, atraumatic, PERRLA, normal sclera, eyelids normal Neck: Active full range of motion, atraumatic Chest: Normal to inspection, negative crepitus, no overlying erythema ecchymosis Respiratory: Normal respiratory effort, not in acute respiratory distress, clear to auscultation bilaterally negative cough, wheeze, tachypnea, rhonchi, rales Cardiology: Regular rate rhythm negative gallop, murmur, rubs GI/: No tenderness to palpation, patient with well-appearing laparoscopic scars of the abdomen consistent with recent surgery, no erythema mild scattered ecchymosis, soft, non rigid, normal to inspection, exam deferred MSK: Full active range of motion in all 4 extremities, atraumatic, no tenderness to palpation of any bony prominences Skin: No rashes or lesions noted Neuro: Alert awake oriented x3, moves all 4 extremities spontaneously, cranial nerves intact, able to answer all questions appropriately follows commands appropriately Psych: Cooperative, negative suicidal or homicidal ideations Initial Vital Signs Initial Vital Signs: Vital Signs Temperature 98.3 F 01/04/25 16:57 Pulse Rate 77 01/04/25 16:57 Respiratory Rate 18 01/04/25 16:57 Blood Pressure 136/82 01/04/25 16:57 Pulse Oximetry 96 01/04/25 16:57 Oxygen Delivery Method Room Air 01/04/25 16:57 Course Orders Ordered: ED Orders 01/04/25 17:02 EKG-12 Lead Stat 01/04/25 17:50 Complete Blood Count AUTO DIFF Stat Comprehensive Metabolic Panel Stat Lipase Stat 01/04/25 21:50 CT abdomen pelvis w con Stat Ondansetron HCl (Ondansetron 4 Mg/2 Ml Inj) 4 mg IV NOW PRN PRN Reason: Nausea And Vomiting Ondansetron HCl (Ondansetron 4 Mg Odt) 4 mg PO NOW PRN PRN Reason: Nausea And Vomiting Discontinued Medications Sodium Chloride (Normal Saline 0.9%) 1,000 mls @ 1,000 mls/hr IV BOLUS ONE Stop: 01/04/25 22:50 Last Admin: 01/04/25 22:51 Dose: 1,000 mls/hr Documented By: MIRZA Ondansetron HCl (Ondansetron 4 Mg/2 Ml Inj) 4 mg IV NOW ONE Stop: 01/04/25 21:57 Last Admin: 01/04/25 22:51 Dose: 4 mg Documented By: MIRZA Vital Signs Vital signs: Vital Signs - 8 hr 01/04/25 16:57 01/04/25 19:50 Temperature 98.3 F 98.6 F Pulse Rate 77 77 Respiratory Rate 18 Blood Pressure 136/82 145/84 H Pulse Oximetry 96 98 Oxygen Delivery Method Room Air Room Air MDM - Abdominal Pain Differential Diagnosis Differential diagnosis: Likely abdominal pain, constipation, diverticulitis, gastroenteritis, pancreatitis, small bowel obstruction and other (Electrolyte abnormality) Lab Data 01/04/25 17:50 01/04/25 17:50 Labs: Lab Results 01/04/25 Range/Units 17:50 WBC 11.0 (4.5-11.0) X10^3/uL RBC 5.07 (4.5-5.9) X10^6/uL Hgb 15.9 (13.5-17.5) g/dL Hct 46.8 (41-53) % MCV 92.2 (80-100) fL MCH 31.4 (26-34) PG MCHC 34.1 (30-36) % RDW 13.0 (11.6-14.8) % Plt Count 266 (150-400) X10^3/uL Neut % (Auto) 77.1 H (50-75) % Lymph % (Auto) 10.5 L (25-40) % [place] % (Auto) 11.2 (3-14) % Eos % (Auto) 1.0 L (2-4) % Baso % (Auto) 0.2 (0-2) % Neut # (Auto) 8400 H (7134-8654) /uL Lymph # (Auto) 1100 (5145-6593) /uL [place] # (Auto) 1200 H (0-900) /uL Eos # (Auto) 100 (0-450) /uL Baso # (Auto) 0 (0-100) /uL Sodium 136 L (137-145) mmol/L Potassium 3.2 L (3.4-5.1) mmol/L Chloride 97 L (98-107) mmol/L Carbon Dioxide 32 (22-32) mmol/L BUN 15 (9-20) mg/dL Creatinine 0.91 (0.66-1.25) mg/dL Estimated GFR > 60 (>60) mL/min BUN/Creatinine Ratio 16.5 (6-22) Glucose 116 H (70-99) mg/dL Calcium 9.2 (8.4-10.2) mg/dL Total Bilirubin 1.4 H (0.2-1.3) mg/dL AST 53 (17-59) IU/L ALT 72 H (<50) IU/L Alkaline Phosphatase 95 (38-126) U/L Total Protein 7.6 (6.3-8.2) g/dL Albumin 4.3 (3.5-5.0) g/dL Globulin 3.3 (1.7-4.1) g/dL Albumin/Globulin Ratio 1.3 (1.0-2.8) Lipase 95 (23-300) U/L Imaging Data CT scan - abdomen/pelvis: Radiologist's Impression: [address] [address] [address] Scan Report Signed Patient: Devonte Obrien MR#: [id number] : 1950 Acct:[id number] Age/Sex: 74 / M Date of Service: 01/04/25 Loc: ED Accession Number: [id number] Procedure: CT abdomen pelvis w con Ordering Provider: Skip Shaw D.O. PROCEDURE: CT ABDOMEN PELVIS W CON INDICATIONS: Abdominal distention, nausea and vomiting s/p gastric bypass TECHNIQUE: After the administration of intravenous contrast, axial sections acquired from the lung bases to the pubic symphysis. Coronal and sagittal reformats were performed. For radiation dose reduction, the following was used: automated exposure control, adjustment of mA and/or kV according to patient size. COMPARISON: [facility], CT, CT CHEST ABD PEL W CON, 11/15/2022, 22:55. FINDINGS: Image quality: Diagnostic. Lower Chest: No significant findings. ABDOMEN: Liver: No solid mass. Gallbladder: Luminal echogenic foci are present without wall thickening. Biliary ducts: No biliary dilation. Pancreas: No ductal dilation. Spleen: Size is within normal limits. Small hiatal hernia. Accessory splenule. Adrenal Glands: No adrenal nodules. Kidneys and Ureters: No hydronephrosis. No solid mass. No complex renal cystic lesion which requires follow up. Stomach and Bowel: Normal colonic caliber, without significant wall thickening. Postsurgical gastric changes are present. Appearance of liquid stool within the colon. Peritoneum: No abnormal intraperitoneal fluid. No free air. Ventral Wall: Fat containing ventral hernia. Abdominal Nodes: No retroperitoneal or mesenteric adenopathy by size criteria. Vessels: Aorta and inferior vena cava are normal in size. PELVIS: Pelvic Organs: Unremarkable. Bladder: No bladder wall thickening, accounting for underdistention. Pelvic Nodes: No enlarged lymph nodes. Miscellaneous: Bilateral fat containing inguinal hernias are seen. Bones: No aggressive osseous abnormality. Previously noted left rib fractures. IMPRESSION: Appearance of liquid stool within the colon. Recommend correlation to diarrhea. MDM Narrative Medical decision making narrative: 74-year-old male with a past medical history of AFib on Lovenox, status post gastric bypass performed at [facility] on 12/27/2024 presents to the emergency department from home for evaluation of abdominal distention nausea vomiting, states that he has been tolerating his liquid diet until yesterday and has been having some dry heaves, states that he called his surgeon and instructed the patient come into the ED for further evaluation treatment. On exam patient is well-appearing nontoxic abdomen is consistent with recent surgery mild scattered ecchymosis but no signs of purulent discharge or erythema. Patient lab work without any leukocytosis Chem panel unremarkable. Patient had CT scan performed here in the emergency department no acute findings, patient had complete resolution of symptoms here in the emergency department. Patient will be discharged home with outpatient follow up, he was given strict return precautions verbalized understanding of this and agrees to being discharged home with outpatient follow up. Discharge Plan Departure Patient Disposition: Home Clinical Impression: Nausea & vomiting Activity Restrictions/Additional Instructions: Please follow up with your primary care doctor and your surgeon Please read the discharge instructions sheet carefully and bring all papers to all doctor follow-up visits, as it may contain information that your doctor may want to see. Disease processes change and evolve, if your symptoms worsen or if you develop any new symptoms that are concerning to you please return for evaluation. Your evaluation today does not show any evidence of any life-threatening/serious illnesses requiring admission to the hospital or surgery. Please follow-up with your doctor for re-evaluation in approximately 1 day. Seek immediate medical attention for any worrisome symptoms. *If you do not have a primary care provider please contact the [facility] Resource line at [phone]. They will ask some questions about your medical history and help get you set up with a doctor in the community. Prescriptions: No Action losartan 50 mg tablet 50 mg PO DAILY cetirizine [Aller-Jennifer] 10 mg tablet 5 mg PO DAILY PRN (Reason: Allergies) lidocaine 5 % ointment 1 applic topical TID PRN (Reason: pain) Qty: 30 1RF furosemide 40 mg Tablet 40 mg PO DAILY paroxetine HCl 30 mg Tablet 30 mg PO DAILY montelukast 10 mg Tablet 10 mg PO DAILY metoprolol succinate 25 mg Tablet Extended Release 24 Hr 25 mg PO DAILY rosuvastatin 20 mg Tablet 20 mg PO DAILY Eliquis 5 mg Tablet 5 mg PO BID cyclobenzaprine 10 mg Tablet 10 mg PO Q8HR PRN (Reason: Spasms) Qty: 60 0RF docusate sodium 100 mg Capsule 100 mg PO BID PRN (Reason: constipation) Qty: 30 0RF hydromorphone [Dilaudid] 4 mg tablet 4 mg PO Q3H PRN (Reason: pain, severe) Qty: 42 0RF cephalexin 500 mg tablet 500 mg PO QID Qty: 20 0RF Referrals: Vick Virk MD [Primary Care Provider, Family Practice] Stand Alone Forms: Patient Portal/API
[2025-01-04] MEDS: ONDANSETRON 4 MG/2 ML INJ IV (22:51)
[2025-01-04] MEDS: SODIUM CHLORIDE 0.9% 1,000 ML 1000 ML IV (22:51)
[2025-01-04 22:54] VITALS: PULSE 65; O2SAT 100
[2025-01-04 22:56] VITALS: BP 159/79; PULSE 62; O2SAT 96
[2025-01-04 23:00] VITALS: BP 165/83; PULSE 61; RESP 20; O2SAT 96
[2025-01-04 23:30] VITALS: BP 171/77; PULSE 62; RESP 18; O2SAT 98
== END 2025-01-04 23:50 | disposition home or self-care (01) ==
PROVIDERS: Emergency Medicine; Emergency Provider Student in an Organized Health Care Education/Training Program; PCP Family Medicine
DX: R11.2 Nausea with vomiting, unspecified (principal); R14.0 Abdominal distension (gaseous); Z98.84 Bariatric surgery status
CPT/HCPCS: 36415; 74177; 80053; 83690; 85025; 96361; 96374; 99284; J2405; Q9967

== ENCOUNTER → 2025-05-11 10:37 | Outpatient (ROUT) | payer OTHER, SELFPAY ==
[2022-05-17 21:48] VITALS: BMI 42.9
[2025-05-11 10:54] LABS: Alanine Aminotransferase 29 IU/L (<50); Albumin 4.4 g/dL (3.5-5.0); Albumin Globulin Ratio 1.3 (1.0-2.8); Alkaline Phosphatase 89 U/L (38-126); Blood Urea Nitrogen 20 mg/dL (9-20); Calcium 9.3 mg/dL (8.4-10.2); Carbon Dioxide 26 mmol/L (22-32); Chloride 102 mmol/L (98-107); Cholesterol 170 mg/dL (140-199); Estimated Glomerular Filt Rate > 60 mL/min (>60); Globulin 3.3 g/dL (1.7-4.1); Glucose 104 mg/dL (70-99); HDL Cholesterol 69 mg/dL (40-60); HEMOLYSIS 26 (0-50); Potassium 4.0 mmol/L (3.4-5.1); Sodium 139 mmol/L (137-145); Total Protein 7.7 g/dL (6.3-8.2); Triglycerides 89 mg/dL (35-150)
== END ==
PROVIDERS: PCP Family Medicine; Visit Provider Internal Medicine Cardiovascular Disease
DX: E87.6 Hypokalemia (principal); E78.2 Mixed hyperlipidemia
CPT/HCPCS: 80053; 80061